=== PATIENT | female | born 1960 | race Caucasian/White ===

== ENCOUNTER → 2017-11-28 06:31 | Outpatient (CLI) | payer BC, SELFPAY ==
--- NOTE | 2017-11-28 14:38 | PFT ---
INTRODUCTION: The patient is a 57-year-old female currently under the care of Dr. Hernandez that presents for pulmonary function testing secondary to a diagnosis of asthma. Respiratory therapy reports good patient effort and reports no other concerns. Bronchodilators were used during testing. INTERPRETATION: Forced expiration spirometry demonstrates the presence of a moderately severe large airways obstructive ventilatory defect. There was a significant response to aerosolized bronchodilators noted in both FEV1 and FVC. Spirograms are of good quality and do not plateau indicating slow emptying of the lungs. The respiratory flow volume loop reveals decreased expiratory flow rates at high lung volumes consistent with small airways obstruction. Body plethysmography was performed and reveals lung volumes to be within normal limits. Diffusing capacity by single breath CO is within normal limits at 75% of predicted. When compared to previous pulmonary function studies dated November 2016 there has been a 12% decrease in the patient's diffusing capacity. IMPRESSION: These pulmonary function studies demonstrate the presence of a partially reversible moderately severe large airways obstructive ventilatory defect.
== END ==
PROVIDERS: Family Provider Family Medicine; PCP Family Medicine; Visit Provider Internal Medicine Critical Care Medicine
DX: J44.9 Chronic obstructive pulmonary disease, unspecified (principal); J45.20 Mild intermittent asthma, uncomplicated
CPT/HCPCS: 94060; 94726; 94729

== ENCOUNTER → 2017-12-04 10:56 | Outpatient (CLI) | payer BC, SELFPAY ==
[2015-08-01 08:54] VITALS: BMI 28.0
[2015-08-01 11:46] VITALS: BP 146/72
--- NOTE | 2017-12-04 11:15 | BRBX_PTH ---
PATIENT: ZUNILDA AJ LOC: [facility] U#:[id number] AGE/SX: 65/F ROOM: RE12/04/[address]: Dr. Silvia Winter MD : 1960 BED: DIS: SPEC #: [id number] RECD: 12/04/17 11:50 STATUS: DENISE REAguilar #: [id number] LALO: 12/04/17 11:[address]: Silvia Winter DEPT: SURGICAL PATHOLOGY RECD BY: Analilia Dueñas ENTERED: 12/04/17 12:50 SP TYPE: BREAST BX OTHR DR: Dr. Cinda Yuen MD Tissues: Right breast, NOS Procedures: Surgery Specimen Level IV HEADER OPERATION: Right breast stereotactic biopsy PRE-OP DIAGNOSIS: Right breast mass at 12 o?clock position TISSUE SUBMITTED: Right breast core tissue ISCHEMIC TIME: 1 minute FIXATION TIME: 8 hours MICROSCOPIC DIAGNOSIS Right breast mass at 12 o?clock, stereotactic needle core biopsy: Fibrocystic change. No evidence of malignancy. AM:liz 12/05/17 MICROSCOPIC DESCRIPTION Slides are reviewed. GROSS DESCRIPTION Received is one container labeled with the patient's name and not further designated. The specimen consists of multiple elongated fragments of campbell-yellow fibroadipose tissue that in aggregate measure 5 x 3 x 0.6 cm. The entire specimen is submitted in four cassettes. / SJ:liz 12/04/16 TC:5 CPT: 97794
--- NOTE | 2017-12-04 13:24 | PCM.OPRPT ---
Report of Operation Date of Procedure: 12/04/17 Pre-Operative Diagnosis: abnormal mammograms Post-Operative Diagnosis: same Surgery/Procedure Performed:: right stereotactic breast biopsy Description of Surgical Findings:: faint nodular lesion seen in right breast mammograms Type of Anesthesia:: Local - 1% xylocaine Specimen's removed: right breast tissue Estimated Blood Loss (mL): < 1 Description of Procedure: After informed consent was given, the patient was brought into the breast biopsy suite and then placed in the prone position on the stereotactic biopsy table. The patients right breast was then placed in the opening at the head of the table. A transportation technician compression mammogram was then obtained in the CC view. The suspicious radiological lesion was then identified. Stereo pictures of the lesion were then taken for XYZ coordinates. The Mammotome biopsy stylus was then positioned where it would be entering into the patients breast. The skin at this site was then cleansed with a surgical skin preparation. The skin and subcutaneous tissues at this site were then infiltrated with 1% xylocaine. A small skin incision was made with an 11 blade scalpel. The biopsy stylus was then positioned into the patients breast at the proper coordinates of depth. Using the Mammotome vacuum-assist device, several core samples of breast tissue were obtained. A hemostatic marker clip was then placed into the biopsy cavity and a transportation technician film revealed that it was properly deployed. The patient was then placed in the supine position and pressure was applied to the breast until no active bleeding was noted. Steristrips were applied to reapproximate the skin. A unilateral mammogram in the CC and MLO view were then taken which revealed that the marker clip was in the same area as the previous suspicious lesion. The patient tolerated the procedure well and was discharged from the breast biopsy suite in good condition. - Complications none noted - Admit VTE Documentation VTE Present on Admission: No - low risk procedure for PE/DVT
--- NOTE | 2017-12-04 14:21 | OP.PCM_ITS ---
Report of Operation Date of Procedure: 12/04/17 Pre-Operative Diagnosis: abnormal mammograms Post-Operative Diagnosis: same Surgery/Procedure Performed:: right stereotactic breast biopsy Description of Surgical Findings:: faint nodular lesion seen in right breast mammograms Type of Anesthesia:: Local - 1% xylocaine Specimen's removed: right breast tissue Estimated Blood Loss (mL): < 1 Description of Procedure: After informed consent was given, the patient was brought into the breast biopsy suite and then placed in the prone position on the stereotactic biopsy table. The patient?s right breast was then placed in the opening at the head of the table. A railroad dining car stewardess compression mammogram was then obtained in the CC view. The suspicious radiological lesion was then identified. Stereo pictures of the lesion were then taken for XYZ coordinates. The Mammotome biopsy stylus was then positioned where it would be entering into the patient?s breast. The skin at this site was then cleansed with a surgical skin preparation. The skin and subcutaneous tissues at this site were then infiltrated with 1% xylocaine. A small skin incision was made with an 11 blade scalpel. The biopsy stylus was then positioned into the patient?s breast at the proper coordinates of depth. Using the Mammotome vacuum-assist device, several core samples of breast tissue were obtained. A hemostatic marker clip was then placed into the biopsy cavity and a railroad dining car stewardess film revealed that it was properly deployed. The patient was then placed in the supine position and pressure was applied to the breast until no active bleeding was noted. Steristrips were applied to reapproximate the skin. A unilateral mammogram in the CC and MLO view were then taken which revealed that the marker clip was in the same area as the previous suspicious lesion. The patient tolerated the procedure well and was discharged from the breast biopsy suite in good condition. - Complications none noted - Admit VTE Documentation VTE Present on Admission: No - low risk procedure for PE/DVT
== END ==
PROVIDERS: Family Provider Family Medicine; PCP Family Medicine; Visit Provider Surgery
DX: R92.8 Other abnormal and inconclusive findings on diagnostic imaging of breast (principal)
CPT/HCPCS: 19081; 88305; J7050; A4648

== ENCOUNTER 2018-02-09 08:23 | Emergency (ER) | payer OTHER, SELFPAY ==
[2018-02-09 08:25] VITALS: BP 155/115; PULSE 85; RESP 17; TEMP 36.4; O2SAT 100; BMI 26.5
--- NOTE | 2018-02-09 08:55 | ED.DCSUM_ITS ---
- ER Visit Summary Date of Service: 02/09/18 Chief Complaint: Laceration History of Present Illness: The patient is a 57 F presenting with laceration to left index finger. Patient states last night she was cutting ray with a new knife and accidentally cut her left index finger. She wrapped it up and did not look at it again until this morning. This morning she had continued bleeding so she went to urgent care. Urgent care sent her to the ED for further evaluation. Last tetanus is unknown. Physical Examination: Vitals are stable. Patient is afebrile. Alert no acute distress. HEENT exam is unremarkable. Lungs are clear and equal bilaterally. Heart is regular rate and rhythm. Extremities left index finger distal skin avulsion with partial nail avulsion. Normal cap refill. Tendon function intact Skin is warm and dry. No focal neurologic deficit. Remainder of exam is unremarkable. Emergency Department Course and Treatment: Patient given tetanus IM. Digital block was performed. Wound was irrigated. Nail was trimmed. Remainder of wound is not amenable to suturing. Surgicel dressing was applied. Advised wound care instructions. Advised to follow-up with primary care physician. Advised return to ED for worsening complaints. Disposition: Discharge home Impression: Left index finger distal skin avulsion This note was generated with [employer] dictation software. It may contain incorrect words, spelling, and punctuation that were not noted in review of the chart prior to signing ED Disposition - Plan for ED Patient: Chief Complaint: Laceration Referrals: Cinda Yuen MD [Primary Care Provider] -
--- NOTE | 2018-02-09 10:03 | ED.DEP ---
ED Disposition - Plan for ED Patient: Chief Complaint: Laceration Instructions: ED Avulsion Nail Partial Referrals: Cinda Yuen MD [Primary Care Provider] -
[2018-02-09] MEDS: Diphth,Pertuss(Acell),Tet Vac 0.5 ML Vial IM (10:31)
[2018-02-09 10:32] VITALS: RESP 16
== END 2018-02-09 10:35 | disposition home or self-care (01) ==
PROVIDERS: Emergency Provider Emergency Medicine; Family Provider Family Medicine; PCP Family Medicine
DX: S61.301A Unspecified open wound of left index finger with damage to nail, initial encounter (principal); W26.0XXA Contact with knife, initial encounter; Y93.9 Activity, unspecified; Y92.9 Unspecified place or not applicable; Y99.9 Unspecified external cause status; Z23 Encounter for immunization; Z72.0 Tobacco use; Z79.899 Other long term (current) drug therapy
CPT/HCPCS: 90471; 90715; 99283

== ENCOUNTER → 2018-08-12 08:12 | Outpatient (CLI) | payer OTHER, SELFPAY ==
[2018-08-12 10:53] LABS: T4 Total, Thyroxin 13.8 ug/dL (4.8-13.9); Thyroid Stim Hormone (TSH) 0.29 uIU/mL (0.358-3.74)
== END ==
PROVIDERS: Family Provider Family Medicine; PCP Family Medicine; Visit Provider Family Medicine
DX: E03.9 Hypothyroidism, unspecified (principal)
CPT/HCPCS: 36415; 84436; 84443

== ENCOUNTER → 2018-11-24 06:40 | Outpatient (CLI) | payer OTHER, SELFPAY ==
[2018-06-09 06:39] VITALS: BMI 26.5
--- NOTE | 2018-11-24 14:04 | PFT ---
INTRODUCTION: The patient is a 58-year-old female that presents for pulmonary function studies secondary to a diagnosis of COPD. Respiratory therapy reports good patient effort. Bronchodilators were used during testing. INTERPRETATION: Forced expiration spirometry demonstrates the presence of a moderately severe large airways obstructive ventilatory defect. There was a significant response to aerosolized bronchodilators noted. Spirograms are of good quality and do not plateau indicating slow emptying of the lungs. Body plethysmography was performed and revealed an elevated RV to 131% of predicted, indicative of underlying air trapping. Diffusing capacity by single breath CO is within normal limits at 89% of predicted. IMPRESSION: These pulmonary function studies demonstrate the presence of a partially reversible moderately severe large airways obstructive ventilatory defect with associated air trapping.
== END ==
PROVIDERS: Family Provider Family Medicine; PCP Family Medicine; Referring Provider Internal Medicine Critical Care Medicine; Visit Provider Internal Medicine Critical Care Medicine
DX: J44.9 Chronic obstructive pulmonary disease, unspecified (principal); J45.20 Mild intermittent asthma, uncomplicated
CPT/HCPCS: 94060; 94726; 94729

== ENCOUNTER → 2019-01-22 10:41 | Outpatient (CLI) | payer OTHER, SELFPAY ==
--- NOTE | 2019-01-22 | BRBX_PTH ---
PATIENT: ZUNILDA AJ LOC: [facility] U#:[id number] AGE/SX: 65/F ROOM: RE01/22/[address]: Dr. Silvia Winter MD : 1960 BED: DIS: SPEC #: [id number] RECD: 01/22/19 14:26 STATUS: DENISE RE #: [id number] LALO: 01/22/19 00:[address]: Silvia Winter DEPT: SURGICAL PATHOLOGY RECD BY: Anderson Moya ENTERED: 01/22/19 14:26 SP TYPE: BREAST BX OTHR DR: Dr. Cinda Yuen MD Tissues: Right breast, NOS Procedures: Surgery Specimen Level IV HEADER OPERATION: Right stereotactic breast biopsy PRE-OP DIAGNOSIS: Right breast 12 o'clock middle depth density TISSUE SUBMITTED: Right breast core tissue ISCHEMIC TIME: 1 minute FIXATION TIME: 56 hours MICROSCOPIC DIAGNOSIS Right breast, 12 o'clock, middle depth density, stereotactic core biopsy: Fragments of benign breast tissue with focal dense fibrosis, chronic inflammation and old hemorrhage, consistent with previous biopsy related changes. Negative for atypia or malignancy. NICK:liz 01/25/19 COMMENT Please make reference to previous specimen ([id number]) right breast mass at 12 o'clock, stereotactic needle core biopsy with diagnosis of fibrocystic change. MICROSCOPIC DESCRIPTION Slides are reviewed. GROSS DESCRIPTION Received is one container labeled with the patient's name and not further designated. The specimen consists of multiple elongated fragments of campbell-yellow fibroadipose tissue that in aggregate measure 2.5 x 2 x 0.2 cm. The entire specimen is submitted in one cassette. / NICK:liz 01/22/19 TC:5 CPT: 72719
--- NOTE | 2019-01-25 08:52 | PCM.OPRPT ---
Report of Operation Date of Procedure: 01/22/19 Pre-Operative Diagnosis: abnormal right breast mammograms Post-Operative Diagnosis: same Surgery/Procedure Performed:: right stereotactic breast biopsy Description of Surgical Findings:: probable scar tissue at previous biopsy site, previous biopsy clip removed with specimen Type of Anesthesia:: Local - 1% xylocaine Specimen's removed: right breast tissue Estimated Blood Loss (mL): minimal Fluids Replaced: none Description of Procedure: After informed consent was given, the patient was brought into the breast biopsy suite. Appropriate time out protocol was followed. She was then placed in the prone position on the stereotactic biopsy table. The patient?s right breast was then placed at the opening at the head of the table. A sourcing assistant compression mammogram was then obtained in the CC view. The suspicious radiological lesion was then identified. Stereo pictures of the lesion were then taken for XYZ coordinates. The Mammotome biopsy stylus was then positioned where it would be entering into the patient?s breast. The skin at this site was then cleansed with a surgical skin preparation. The skin and subcutaneous tissues at this site were then infiltrated with 1% xylocaine. A small skin incision was made with an 11 blade scalpel. The biopsy stylus was then positioned into the patient?s breast at the proper coordinates of depth. Using the Mammotome vacuum-assist device, several core samples of breast tissue were obtained. A hemostatic marker clip was then placed into the biopsy cavity. A sourcing assistant film revealed that it was properly deployed and that the previous marker clip was no longer present. The patient was then placed in the supine position and pressure was applied to the breast until no active bleeding was noted. Steristrips were applied to reapproximate the skin. A unilateral mammogram in the CC and MLO view were then taken which revealed that the marker clip was in the same area as the previous suspicious lesion. The patient tolerated the procedure well and was discharged from the breast biopsy suite in good condition. - Complications none noted
--- NOTE | 2019-01-25 08:56 | OP.PCM_ITS ---
Report of Operation Date of Procedure: 01/22/19 Pre-Operative Diagnosis: abnormal right breast mammograms Post-Operative Diagnosis: same Surgery/Procedure Performed:: right stereotactic breast biopsy Description of Surgical Findings:: probable scar tissue at previous biopsy site, previous biopsy clip removed with specimen Type of Anesthesia:: Local - 1% xylocaine Specimen's removed: right breast tissue Estimated Blood Loss (mL): minimal Fluids Replaced: none Description of Procedure: After informed consent was given, the patient was brought into the breast biopsy suite. Appropriate time out protocol was followed. She was then placed in the prone position on the stereotactic biopsy table. The patient?s right breast was then placed at the opening at the head of the table. A heater planer operator compression mammogram was then obtained in the CC view. The suspicious radiological lesion was then identified. Stereo pictures of the lesion were then taken for XYZ coordinates. The Mammotome biopsy stylus was then positioned where it would be entering into the patient?s breast. The skin at this site was then cleansed with a surgical skin preparation. The skin and subcutaneous tissues at this site were then infiltrated with 1% xylocaine. A small skin incision was made with an 11 blade scalpel. The biopsy stylus was then positioned into the patient?s breast at the proper coordinates of depth. Using the Mammotome vacuum-assist device, several core samples of breast tissue were obtained. A hemostatic marker clip was then placed into the biopsy cavity. A heater planer operator film revealed that it was properly deployed and that the previous marker clip was no longer present. The patient was then placed in the supine position and pressure was applied to the breast until no active bleeding was noted. Steristrips were applied to reapproximate the skin. A unilateral mammogram in the CC and MLO view were then taken which revealed that the marker clip was in the same area as the previous suspicious lesion. The patient tolerated the procedure well and was discharged from the breast biopsy suite in good condition. - Complications none noted
== END ==
PROVIDERS: Family Provider Family Medicine; PCP Family Medicine; Referring Provider Surgery; Visit Provider Surgery
DX: R92.8 Other abnormal and inconclusive findings on diagnostic imaging of breast (principal); N60.31 Fibrosclerosis of right breast; E03.9 Hypothyroidism, unspecified; M16.10 Unilateral primary osteoarthritis, unspecified hip; F17.200 Nicotine dependence, unspecified, uncomplicated; Z79.899 Other long term (current) drug therapy; Z85.828 Personal history of other malignant neoplasm of skin
CPT/HCPCS: 19081; 88305; J7050

== ENCOUNTER → 2019-03-12 07:55 | Outpatient (CLI) | payer OTHER, SELFPAY ==
--- NOTE | 2019-03-12 07:59 | US_ITS ---
STUDY: ABDOMINAL ULTRASOUND - RIGHT UPPER QUADRANT REASON FOR VISIT: Female, 58 years old. Right upper quadrant pain TECHNIQUE: Ultrasound evaluation of the right upper quadrant was performed with real-time and static mejia-scale imaging. TECHNICAL QUALITY: Adequate. COMPARISON: None. FINDINGS: Liver: The liver measures 16 cm. There is increased echogenicity of the liver. The bile ducts are within normal limits. There is hepatic color flow. The direction of portal flow is hepatopetal. There is no demonstrated mass lesion. Gallbladder: Partially distended gallbladder. The gallbladder wall measures 2.0 mm. There is a negative sonographic Brown's sign. There is no pericholecystic fluid. There are no gallstones. Common Bile Duct (C.B.D.): The common bile duct measures 2.2 mm. Pancreas: There is normal echogenicity of the visualized pancreas. There is no demonstrated pancreatic mass or cyst. Right Kidney: Normal size of the right kidney. The right kidney measures 10.9 x 5.2 x 4.0 cm. Normal renal cortex. The right cortex measures 1.2 cm. There is no demonstrated renal mass or cyst. There is no right hydronephrosis. US/Abdomen Limited IMPRESSION: 1. No gallstones or sonographic evidence of cholecystitis/biliary obstruction. 2. Increased echo pattern of the liver is nonspecific most commonly associated with hepatic steatosis. Electronically Signed: Joseph Regan MD at 14:10 EDT , Service support ,
== END ==
PROVIDERS: Family Provider Family Medicine; PCP Family Medicine; Referring Provider Family Medicine; Visit Provider Family Medicine
DX: R10.9 Unspecified abdominal pain (principal)
CPT/HCPCS: 76705

== ENCOUNTER → 2019-04-21 10:08 | Outpatient (CLI) | payer OTHER, SELFPAY ==
[2018-12-08 06:25] VITALS: BMI 26.2
[2019-04-21 12:29] LABS: Hematocrit 44.1 % (37-47); Hemoglobin 14.9 g/dl (12.0-15.0); Mean Corp Hgb Conc 33.8 g/gl (32-36); Mean Corpuscular Hgb 30.5 pg (27.0-32.0); Mean Corpuscular Volume 90.4 fL (81-99); Mean Platelet Vol. 10.6 fl (6.2-12.0); Platelet Count 170 K/mm3 (150-450); RBC Distribution Width CV 12.6 % (11.6-14.6); RBC Distribution Width SD 41.2 fl (35.1-43.9); Red Blood Count 4.88 M/mm3 (4.2-5.4)
[2019-04-21 12:36] LABS: Scan Indicated on CBC? Y/N NO
[2019-04-21 13:18] LABS: AST(SGOT) 21 U/L (15-37); Alanine Aminotransfer ALT/SGPT 32 U/L (13-56); Albumin, Serum 4.1 g/dL (3.2-5.0); Alkaline Phosphatase 94 U/L (45-117); Bilirubin, Direct 0.13 mg/dL (0.00-0.30); CRP 3.67 mg/L (0.0-3.0); Globulin 3.5 g/dL (2.2-4.2); Protein, Total 7.6 g/dL (6.4-8.2)
== END ==
PROVIDERS: Family Provider Family Medicine; PCP Family Medicine; Referring Provider Internal Medicine Gastroenterology; Visit Provider Internal Medicine Gastroenterology
DX: R10.9 Unspecified abdominal pain (principal)
CPT/HCPCS: 36415; 80076; 85027; 86140

== ENCOUNTER → 2019-05-06 07:35 | Outpatient (CLI) | payer OTHER, SELFPAY ==
--- NOTE | 2019-05-06 07:37 | US_ITS ---
STUDY: ULTRASOUND OF THE FEMALE PELVIS - COMPLETE REASON FOR EXAM: Female, 59 years old. Right lower quadrant pain. LMP: Unknown. TECHNIQUE: Transabdominal and Transvaginal. TECHNICAL QUALITY: Adequate. COMPARISON: None. FINDINGS: The uterus is anteverted and is in a midline position. The uterus measures 4.4 x 3.1 x 1.7 cm. Normal uterine cervix. The endometrium measures 1 mm in thickness, and is hyperechoic. There is no demonstrated endometrial mass. There is no demonstrated myometrial mass. There is echogenic focus of the posterior uterus with possible small calcification. I.U.D. - The patient does not have an I.U.D. The right ovary is visualized. The right ovary measures 1.4 x 0.7 x 0.7 cm. There is no right ovarian cyst or ovarian mass. There is no visualized right adnexal mass or complex lesion. There is normal arterial and normal venous vascularity. The left ovary is visualized. The left ovary measures 1.3 x 1.2 x 0.8 cm. There is no left ovarian cyst or ovarian mass. There is no visualized left adnexal mass or complex lesion. There is normal arterial and normal venous vascularity. There is no fluid in the cul-de-sac. The pre void volume of the bladder was 328 ml. US/Pelvic (Non ) IMPRESSION: No dominant mass or cyst. Small calcification of the posterior uterus. Electronically Signed: Benito Oliva MD at 17:00 EDT , Service support ,
--- NOTE | 2019-05-06 08:11 | US_ITS ---
STUDY: ULTRASOUND OF THE FEMALE PELVIS - COMPLETE REASON FOR EXAM: Female, 59 years old. Right lower quadrant pain. LMP: Unknown. TECHNIQUE: Transabdominal and Transvaginal. TECHNICAL QUALITY: Adequate. COMPARISON: None. FINDINGS: The uterus is anteverted and is in a midline position. The uterus measures 4.4 x 3.1 x 1.7 cm. Normal uterine cervix. The endometrium measures 1 mm in thickness, and is hyperechoic. There is no demonstrated endometrial mass. There is no demonstrated myometrial mass. There is echogenic focus of the posterior uterus with possible small calcification. I.U.D. - The patient does not have an I.U.D. The right ovary is visualized. The right ovary measures 1.4 x 0.7 x 0.7 cm. There is no right ovarian cyst or ovarian mass. There is no visualized right adnexal mass or complex lesion. There is normal arterial and normal venous vascularity. The left ovary is visualized. The left ovary measures 1.3 x 1.2 x 0.8 cm. There is no left ovarian cyst or ovarian mass. There is no visualized left adnexal mass or complex lesion. There is normal arterial and normal venous vascularity. There is no fluid in the cul-de-sac. The pre void volume of the bladder was 328 ml. US/Transvaginal Non- IMPRESSION: No dominant mass or cyst. Small calcification of the posterior uterus. Electronically Signed: Benito Oliva MD at 17:00 EDT , Service support ,
== END ==
PROVIDERS: Family Provider Family Medicine; PCP Family Medicine; Referring Provider Internal Medicine Gastroenterology; Visit Provider Internal Medicine Gastroenterology
DX: R10.31 Right lower quadrant pain (principal)
CPT/HCPCS: 76830; 76856; 93976

== ENCOUNTER → 2019-12-16 07:27 | Outpatient (CLI) | payer OTHER, SELFPAY ==
[2019-06-22 07:09] VITALS: BMI 26.2
[2019-12-16 10:23] LABS: Anion Gap 5 (5-15); BUN 16 mg/dL (7-18); BUN/Creat Ratio 18.4 RATIO (10-20); Calcium,Total 9.5 mg/dL (8.5-10.1); Chloride 109 mmol/L (98-107); Cholesterol 192 mg/dL (200); Creatinine, Serum 0.87 mg/dL (0.55-1.02); EST Glomerular Filtration Rate 71 mL/min (>60); Est Glom Filt Rate - Afr Amer 85 mL/min (>60); Glucose 83 mg/dL (74-106); High Density Lipoprotein 60 mg/dL; Potassium 4.4 mmol/L (3.5-5.1); Sodium Level 142 mmol/L (136-145); T4 Total, Thyroxin 15.2 ug/dL (4.8-13.9); Thyroid Stim Hormone (TSH) 1.15 uIU/mL (0.358-3.74); Triglycerides 53 mg/dL; Very Low Density Lipoprotein 11 mg/dL (5-40)
== END ==
PROVIDERS: PCP Family Medicine; Referring Provider Family Medicine; Visit Provider Family Medicine
DX: Z00.00 Encounter for general adult medical examination without abnormal findings (principal); E03.9 Hypothyroidism, unspecified
CPT/HCPCS: 36415; 80048; 80061; 84436; 84443

== ENCOUNTER → 2020-06-12 07:18 | Outpatient (CLI) | payer OTHER, SELFPAY ==
[2019-06-22 07:09] VITALS: BMI 26.2
--- NOTE | 2020-06-12 15:04 | PFTCOMP ---
COMPLETE PULMONARY FUNCTION TEST INTERPRETATION Brief HPI: Patient is a 60 year old female, currently under the care of myself, who presents to [facility] for complete pulmonary function tests secondary to diagnosis of COPD. Respiratory therapist reports good effort and reproducible results. Interpretation: Forced expiration spirometry shows a mild large airways obstructive ventilatory defect with an FEV1 of 72% predicted. There is a significant bronchodilator response in FVC and FEV1 by strict ATS criteria. Spirograms are of good quality and plateau slowly, indicating slowly emptying areas of the lungs. The respiratory flow volume loop shows decreased expiratory flow rates at all lung volumes consistent with airway obstruction. Lung volumes by body plethysmography show a normal total lung capacity at 4.82 L, 105% predicted. FRC and RV are elevated out of proportion. Lung volume measurements are consistent with air-trapping. Diffusion capacity by carbon monoxide is normal at 90% predicted. The airway resistance is elevated. Compared to previous pulmonary function tests from 11/24/2018, there has been no significant change when evaluated by postbronchodilator values. Impression: Partially reversible mild large airways obstructive ventilatory defect resulting in air trapping. There is been relative stability over the last year in post bronchodilator values. 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
== END ==
PROVIDERS: PCP Family Medicine; Referring Provider Internal Medicine Critical Care Medicine; Visit Provider Internal Medicine Critical Care Medicine
DX: J44.9 Chronic obstructive pulmonary disease, unspecified (principal); J45.20 Mild intermittent asthma, uncomplicated
CPT/HCPCS: 94060; 94726; 94729

== ENCOUNTER → 2020-11-16 06:58 | Outpatient (CLI) | payer OTHER, SELFPAY ==
[2020-06-20 05:32] VITALS: BMI 25.9
--- NOTE | 2020-11-16 13:35 | PFTCOMP ---
COMPLETE PULMONARY FUNCTION TEST INTERPRETATION Brief HPI: Patient is a 60 year old female, currently under the care of myself, who presents to [facility] for complete pulmonary function tests secondary to diagnosis of COPD. Respiratory therapist reports good effort and reproducible results. Interpretation: Forced expiration spirometry shows a mild large airways obstructive ventilatory defect with an FEV1 of 77% predicted. There is a significant bronchodilator response in FVC and FEV1 by strict ATS criteria. Spirograms are of good quality and plateau slowly, indicating slowly emptying areas of the lungs. The respiratory flow volume loop shows decreased expiratory flow rates at all lung volumes consistent with airway obstruction. Lung volumes by body plethysmography show a normal total lung capacity at 4.84 L, 108% predicted. All other lung volumes are within normal limits. Diffusion capacity by carbon monoxide is normal at 103% predicted. The airway resistance is slightly elevated. Compared to previous pulmonary function tests from 06/12/2020, there is been a significant improvement in FVC, FEV1 and DLCO by 21%, 33% and 16% respectively. Impression: Partially reversible mild obstructive ventilatory defect with preserved diffusion capacity in a pattern consistent with COPD/asthma overlap syndrome, but significant improvement compared to May 2020
== END ==
PROVIDERS: PCP Family Medicine; Referring Provider Internal Medicine Critical Care Medicine; Visit Provider Internal Medicine Critical Care Medicine
DX: J44.9 Chronic obstructive pulmonary disease, unspecified (principal)
CPT/HCPCS: 94060; 94726; 94729

== ENCOUNTER → 2021-01-03 09:51 | Outpatient (CLI) | payer OTHER, SELFPAY ==
[2020-11-23 06:38] VITALS: BMI 26.2
[2021-01-03 12:53] LABS: T4 Total, Thyroxin 15.7 ug/dL (4.8-13.9); Thyroid Stim Hormone (TSH) 0.45 uIU/mL (0.358-3.74)
== END ==
PROVIDERS: PCP Family Medicine; Referring Provider Family Medicine; Visit Provider Family Medicine
DX: E03.9 Hypothyroidism, unspecified (principal)
CPT/HCPCS: 36415; 84436; 84443

== ENCOUNTER → 2021-05-10 07:54 | Outpatient (CLI) | payer OTHER, SELFPAY ==
[2021-05-08 06:44] VITALS: BMI 26.2
== END ==
PROVIDERS: PCP Family Medicine; Referring Provider Family Medicine; Visit Provider Family Medicine
DX: Z01.83 Encounter for blood typing (principal)
CPT/HCPCS: 36415; 86900; 86901

== ENCOUNTER 2021-07-25 06:22 | Day surgery (SDC) | payer OTHER, SELFPAY ==
[2021-07-25 06:42] VITALS: BP 132/79; PULSE 94; RESP 16; TEMP 36.6; O2SAT 97; BMI 25.9
[2021-07-25] MEDS: Lactated Ringers 1,000 ML 100 ML IV (06:49)
--- NOTE | 2021-07-25 07:30 | EGD_PTH ---
PATIENT: ZUNILDA AJ LOC: EN U#:[id number] AGE/SX: 61/F ROOM: RE07/25/[address]: Dr. Giorgi Bauer DO : 1960 BED: DIS: 07/25/2021 SPEC #: [id number] RECD: 07/25/21 09:40 STATUS: DENISE REAguilar #: [id number] LALO: 07/25/21 07:[address]: Giorgi Bauer DEPT: SURGICAL PATHOLOGY RECD BY: Analilia Dueñas ENTERED: 07/25/21 12:16 SP TYPE: EGD BIOPSY [facility] DR: Dr. Cinda Yuen MD Tissues: A - Gastric mucous membrane B - Esophagus, NOS Procedures: Special Stain Group II Surgery Specimen Level IV Alcian Blue/PAS (control) HEADER OPERATION: EGD ([facility] [place]) with dilation PRE-OP DIAGNOSIS: Esophageal dysphagia TISSUE SUBMITTED: A ? Biopsy of gastric body for H. pylori and path, B ? Biopsy of distal esophagus MICROSCOPIC DIAGNOSIS A. Gastric body, biopsy: Chronic active gastritis. Focal intestinal metaplasia. No evidence of dysplasia. See comment. B. Distal esophagus, biopsy: Gastroesophageal junctional mucosa with mild chronic inflammation. No evidence of goblet cell metaplasia. Focal changes of reflux. See comment. AM:liz 07/26/2021 COMMENT A. The results of immunohistochemistry for Helicobacter pylori will be reported separately ([id number]). Immunohistochemistry ([id number]) supports the above diagnosis. Alcian blue/PAS stain with matched control supports the above diagnosis. B. Alcian blue/PAS stain with matched control supports the above diagnosis. MICROSCOPIC DESCRIPTION Slides are reviewed. GROSS DESCRIPTION A - Received in fixative is one container labeled with the patient's name and designated gastric body biopsy. The specimen consists of multiple irregular fragments of light campbell soft tissue that in aggregate measure 0.8 x 0.5 x 0.1 cm. The specimen is totally submitted in one cassette. B - Received in fixative is one container labeled with the patient's name and designated distal esophagus biopsy. The specimen consists of two irregular fragments of light campbell soft tissue that in aggregate measure 0.7 x 0.5 x 0.1 cm. The specimen is totally submitted in one cassette. / AM:liz 07/25/21 TC:3 CPT: 98206 x2, 78000 x2
--- NOTE | 2021-07-25 07:30 | IMM_PTH ---
PATIENT: ZUNILDA AJ LOC: EN U#:[id number] AGE/SX: 61/F ROOM: RE07/25/[address]: Dr. Giorgi Bauer DO : 1960 BED: DIS: 07/25/2021 SPEC #: [id number] RECD: 07/25/21 12:17 STATUS: DENISE REQ #: [id number] LALO: 07/25/21 07:[address]: Giorgi Bauer DEPT: IMMUNOHISTOCHEMISTRY RECD BY: Marielena Castillo ENTERED: 07/25/21 12:17 SP TYPE: IMMUNO OTHR DR: Dr. Cinda Yuen MD Tissues: A - Stomach, NOS Procedures: H Pylori (initial) KI-67 (add) P53 (add) PHYSICIAN & INSTITUTION [place] [id number] SPECIMEN INFORMATION: Tissue Source: A ? Gastric body biopsy Clinical Info: Esophageal dysphagia Specimen Number: [id number] CPT code: 16511, 04404 x2 METHODOLOGY: Deparaffinized sections of prefer/formalin-fixed tissue or PAP/DQ stained slides are incubated with monoclonal/polyclonal antibodies/oligonucleotide probes. Localization is made via biotin free immunoperoxidase method. Appropriate controls are performed and reacted as expected. Results on target cell population are indicated in the following table: RESULTS: ANTIBODY / CLONE RESULT Block A H Pylori (polyclonal) negative P53 (DO-7) negative Ki-67 (30-9) negative These tests were developed and their performance characteristics determined by [facility]. They may not have been cleared or approved by the U.S. Food and Drug Administration. The FDA has determined that such clearance or approval is not necessary. The above immunohistochemical/dualISH markers are ordered and reviewed by the pathologist. INTERPRETATION: A. Gastric body, biopsy: Negative for Helicobacter pylori organisms. Intestinal metaplasia. No evidence of dysplasia. AM:liz 07/27/2021
--- NOTE | 2021-07-25 07:35 | HP.PCM_ITS ---
History and Physical Date of Admission: 07/25/21 Intake Visit Reasons: THROAT ISSUE Chief Complaint: Dysphagia Is patient in pain?: Yes (L Fourth finger - unknown cause) Pain scale (1-10): 3 Allergies Sulfa (Sulfonamide Antibiotics) Adverse Reaction (Verified 07/17/21 07:28) Rash Medications levothyroxine 100 mcg tablet 100 mcg PO DAILY tab 12/08/18 [History Confirmed 07/17/21] beclomethasone dipropionate 80 mcg/actuation HFA breath activated aerosol 2 inh INHALATION Q12H #10.6 g 06/20/20 [Rx Confirmed 07/17/21] albuterol sulfate 90 mcg/actuation aerosol inhaler 2 puff INHALATION PRN #18 g 11/23/20 [Rx Confirmed 07/17/21] latanoprost 0.005 % eye drops 1 drp OPHTHALMIC (EYE) DAILY 07/17/21 [History Confirmed 07/17/21] sour henry extract 1,000 mg capsule mg PO 07/17/21 [History Confirmed 07/17/21] Patient : No Nurse's Note: [facility] Medical History (Updated 07/17/21 @ 08:[address] Rand Friend, DO) Abnormal PFT Esophageal dysphagia Skin cancer Stage 1 mild COPD by GOLD classification Thyroid disease Tobacco abuse Surgical History History of back surgery History of cataract surgery History of knee surgery Hx of LASIK stereotactic BX Family History Brother Thyroid disorder Brothers 1, 2, and 3 Brother Guillain Paul? syndrome Brother 3 Mother Lupus Father Myocardial infarction Social History Smoking Status: Current every day smoker tobacco type: cigars per week: 2 Tobacco: How many years used: 11 second hand exposure: Yes alcohol intake: current alcohol intake frequency: a few times a week Alcohol type: hard liquor substance use type: does not use caffeine: Yes what type of physical activity do you participate in: walking and running frequency: daily HPI HPI Chief Complaint: Dysphagia Details: ZUNILDA AJ, is a 61 F who presents to the office today for the ration of esophageal dysphagia. This begun approximately 18 months ago with a globus sensation that progressed to inability to swallow liquids and solids on occasion. She saw her ear nose and throat doctor after having extensive treatment for postnasal drip as a cause of esophageal dysphagia. After that was not successful she underwent a scope that looked at the back of the throat and no abnormality was seen. She went on a restriction diet of alcohol and caffeine along with taking a proton pump inhibitor. She still had the symptoms of esophageal dysphagia. She comes in now very frustrated regarding the inability to swallow. She has been eliminating acidic foods, all caffeine and almost all alcohol. She suffers from Graves' disease. She says a good thing about stopping caffeine has been the pressures in her eyes have gone down as per her transfusion nurse. She is a chronic smoker and has a history of COPD. She does not cough a lot. But she does produce a lot of mucus. Her mother suffers from scleroderma and she has multiple family members with lupus and rheumatoid arthritis. Recently over the last several months she has been getting really bad discoloration of her fingers and toes in response to temperature changes. She denies any weakness or fatigue. She denies any chest pain or shortness of breath at rest. She does have a history of easy bruising. She denies any history of spontaneous abortions or any blood clotting disorders. All other 16 review of systems are negative except those pertinent positive mentioned HPI. ROS Const Constitutional: No anorexia, fatigue, fever(s), weight change or sleep problems Eyes Eyes: No change in vision ENT ENT: Positive for nasal congestion and difficulty swallowing; No abnormal hearing, tongue swelling or throat swelling Resp Respiratory: Positive for cough (Chronic) Cardio Cardiology: No chest pain at rest, chest pain with exertion, shortness of breath or dyspnea on exertion Gastro GI: Positive for difficulty swallowing Genitourinary-Female: No difficulty urinating or burning urination Musc Musculoskeletal: Positive for joint pain, joint swelling and stiffness Skin Skin: No hair loss in leg, yellowing of the eye, itchy eyes, rash, skin ulcer or skin swelling Neuro Neurology: No abnormal hearing, abnormal movements, confusion, unsteady gait/balance or memory loss Psych Psychiatric: No anxiety, No confusion and No memory loss Endo Endocrine: No fatigue or weight change Aller/Imm Allergy/Immunologic: No itchy eyes, throat swelling or tongue swelling Bull/Lymp Hematologic/Lymphatic: No easy bleeding, easy bruising or enlarged lymph nodes Exam Const General: cooperative and comfortable Nutritional Appearance: average body habitus and well nourished HENSD Head: normal to inspection Ears: hearing grossly normal bilaterally Nose: external nose normal Face and sinus: normal facial exam Mouth: oral mucosae normal Throat: posterior oropharynx normal Eyes General: appearance normal, both eyes and all related structures Neck Neck: normal visual inspection Chest Chest palpation & inspection: normal inspection of the chest and normal palpation of entire chest wall Resp Effort & Inspection: normal respiratory effort Auscultation: Bilateral: Clear to Auscultation Cardio Palpation: normal PMI Rate: regular rate Rhythm: regular rhythm GI Inspection: normal to inspection Auscultation: normal bowel sounds Percussion: normal to percussion Palpation: no hepatosplenomegaly Skin General: no rashes or lesions noted Neuro General: patient alert Extrem General: normal to inspection Psych Affect: normal affect Quality Reporting Tobacco Screening ([facility] 138) Smoking Status: Current every day smoker Assessment and Plan Assessment and Plan (1) Esophageal dysphagia: Status: Acute Plan - Dr. Rand Friend, DO: The differential diagnosis for esophageal dysphagia would be cricopharyngeal achalasia, crest syndrome, Sjogren's syndrome, laryngeal spasm. She will undergo upper endoscopy with possible empiric dilation and biopsies. She will also need biochemical testing with ESR, CRP, SANDEEP, ANCA, anti-CCP, anticentromere antibody, antidouble-stranded DNA, antihistone antibody, anti-Young antibody, LDH, CPK. She will also need to undergo esophageal manometry. Further recommendations to follow. Thank you very much for allowing me to part icipate in the care of this patient. This is an updated H&P from when the patient was seen in the office. Nothing has change since she was seen in office.
[2021-07-25 08:05] VITALS: BP 104/60; BP 132/79; PULSE 80; RESP 16; TEMP 36.4; O2SAT 99
--- NOTE | 2021-07-25 08:06 | OP.EGD_ITS ---
Patient Name: Yessi Smith Procedure Date: 07/25/2021 7:36 AM Date of : 1960 Age: 61 Procedure: Upper GI endoscopy Indications: Dysphagia Providers: Giorgi Bauer DO Medicines: Monitored Anesthesia Care Patient Profile: This is a 61 year old female. Refer to note in patient chart for documentation of history and physical. Patient has symptoms of chronic dysphagia and dysphagia with both liquids and solids. Complications: No immediate complications. Procedure: Pre-Anesthesia Assessment: - Prior to the procedure, a History and Physical was performed, and patient medications and allergies were reviewed. The patient is competent. The risks and benefits of the procedure and the sedation options and risks were discussed with the patient. All questions were answered and informed consent was obtained. Patient identification and proposed procedure were verified by the physician in the pre-procedure area. Mental Status Examination: alert and oriented. Airway Examination: normal oropharyngeal airway and neck mobility. Respiratory Examination: clear to auscultation. CV Examination: normal. Prophylactic Antibiotics: The patient does not require prophylactic antibiotics. Prior Anticoagulants: The patient has taken no previous anticoagulant or antiplatelet agents. ASA Grade Assessment: II - A patient with mild systemic disease. After reviewing the risks and benefits, the patient was deemed in satisfactory condition to undergo the procedure. The anesthesia plan was to use moderate sedation / analgesia (conscious sedation). Immediately prior to administration of medications, the patient was re-assessed for adequacy to receive sedatives. The heart rate, respiratory rate, oxygen saturations, blood pressure, adequacy of pulmonary ventilation, and response to care were monitored throughout the procedure. The physical status of the patient was re-assessed after the procedure. After obtaining informed consent, the endoscope was passed under direct vision. Throughout the procedure, the patient's blood pressure, pulse, and oxygen saturations were monitored continuously. The Endoscope was introduced through the mouth, and advanced to the second part of duodenum. The upper GI endoscopy was accomplished without difficulty. The patient tolerated the procedure well. Moderate Sedation: Moderate (conscious) sedation was personally administered by an anesthesia professional. The following parameters were monitored: oxygen saturation, heart rate, blood pressure, and response to care. Scope In: 7:44:05 AM Scope Out: 7:58:54 AM Total Procedure Duration Time 0 hours 14 minutes 49 seconds Findings: One benign-appearing, intrinsic stenosis was found. This stenosis was moderately severe and. The stenosis was traversed. A guidewire was placed and the scope was withdrawn. Dilation was performed with a Savary dilator with no resistance at 54 Fr. The lesion was not amenable to dilation, and this was not attempted. Diffuse moderate inflammation characterized by congestion (edema), erythema and friability was found in the entire examined stomach. Biopsies were taken with a cold forceps for histology. Verification of patient identification for the specimen was done. Estimated blood loss was minimal. LA Grade A (one or more mucosal breaks less than 5 mm, not extending between tops of 2 mucosal folds) esophagitis with no bleeding was found. Biopsies were taken with a cold forceps for histology. Verification of patient identification for the specimen was done. Estimated blood loss was minimal. The second portion of the duodenum was normal. \ Impression: - Benign-appearing esophageal stenosis. Dilated. Lesion not amenable to dilation, and not attempted. - Gastritis. Biopsied. - LA Grade A reflux esophagitis. Biopsied. - Normal second portion of the duodenum. Biopsied. - Benign-appearing esophageal stenosis. Dilated. - LA Grade A reflux esophagitis. Biopsied. - Gastric mucosal atrophy. - Chronic gastritis. Biopsied. - Normal second portion of the duodenum. Recommendation: - Await pathology results. - Repeat upper endoscopy in 1 year for surveillance based on pathology results. - Return to GI clinic in 2 weeks. - Continue present medications. Procedure Code(s): --- Professional --- 90557, Esophagogastroduodenoscopy, flexible, transoral; with insertion of guide wire followed by passage of dilator(s) through esophagus over guide wire CPT copyright 2017 [employer]. All rights reserved. The codes documented in this report are preliminary and upon remote coders review may be revised to meet current compliance requirements. Giorgi Bauer DO 07/25/2021 8:06:34 AM This report has been signed electronically. Number of Addenda: 1 Note Initiated On: 07/25/2021 7:36 AM Addendum Number: 1 Addendum Date: 06/27/2022 4:10:03 PM MAC was used instead of moderate sedation for this patient. Giorgi Bauer DO 06/27/2022 4:10:09 PM This report has been signed electronically.
--- NOTE | 2021-07-25 08:07 | OP.CCLET_ITS ---
06/27/2022 Cinda Yuen [address] [place] [address] Re : Upper GI endoscopy procedure for Yessi Smith Dear Dr. Yuen This procedure was performed on Sunday, July 25, 2021. My impressions and recommendations are as follows: Impressions : - Benign-appearing esophageal stenosis. Dilated. Lesion not amenable to dilation, and not attempted. - Gastritis. Biopsied. - LA Grade A reflux esophagitis. Biopsied. - Normal second portion of the duodenum. Biopsied. - Benign-appearing esophageal stenosis. Dilated. - LA Grade A reflux esophagitis. Biopsied. - Gastric mucosal atrophy. - Chronic gastritis. Biopsied. - Normal second portion of the duodenum. Recommendations : - Await pathology results. - Repeat upper endoscopy in 1 year for surveillance based on pathology results. - Return to GI clinic in 2 weeks. - Continue present medications. My findings are described in the full procedure note, which is enclosed. If I can be of further assistance, please feel free to contact me at . Sincerely, Giorgi Bauer, 07/25/2021 8:06:34 AM This report has been signed electronically.
[2021-07-25 08:10] VITALS: BP 132/79; BP 93/68; PULSE 81; RESP 18; O2SAT 98
[2021-07-25 08:15] VITALS: BP 116/74; BP 132/79; PULSE 76; RESP 16; O2SAT 98
[2021-07-25 08:20] VITALS: BP 111/67; BP 132/79; PULSE 80; RESP 16; TEMP 36.2; O2SAT 99
[2021-07-25 08:27] VITALS: BP 132/79
== END 2021-07-25 08:50 | disposition home or self-care (01) ==
LOC: EN 06:22 → AC 06:23
PROVIDERS: PCP Family Medicine; Referring Provider Family Medicine; Visit Provider Internal Medicine Gastroenterology
PROC: 0DJ08ZZ Inspection of Upper Intestinal Tract, Via Natural or Artificial Opening Endoscopic (ICD-10-PCS; CPT 43235; principal; 2021-07-25 07:25)
DX: K22.2 Esophageal obstruction (principal); K21.00 Gastro-esophageal reflux disease with esophagitis, without bleeding; K29.50 Unspecified chronic gastritis without bleeding; R13.19 Other dysphagia; E05.00 Thyrotoxicosis with diffuse goiter without thyrotoxic crisis or storm; J44.9 Chronic obstructive pulmonary disease, unspecified; F17.290 Nicotine dependence, other tobacco product, uncomplicated; Z79.890 Hormone replacement therapy; Z79.899 Other long term (current) drug therapy
CPT/HCPCS: 43239; 43248; 88305; 88313; 88341; 88342; J7120; C1769; J2405

== ENCOUNTER → 2021-08-01 14:23 | Outpatient (CLI) | payer OTHER, SELFPAY ==
[2021-08-01 16:17] LABS: CRP 5.37 mg/L (0.0-3.0); Rheumatoid Factor < 10.0 IU/mL (<15)
[2021-08-01 16:39] LABS: Erythrocyte Sedimentation Rate 6 mm/hr (0-30)
[2021-08-03 14:10] LABS: Anti-Centromere B Ab <0.2 AI (0.0-0.9)
[2021-08-03 14:31] LABS: ANTINUCLEAR ANTIBODIES DIRECT Negative (Negative); Anti-Histone Abs 0.4 Units (0.0-0.9); Anti-dsDNA Ab <1 IU/mL (0-9)
[2021-08-04 13:07] LABS: Cytoplasmic Ab (C-ANCA) <1:20 titer (Neg:<1:20)
[2021-08-04 13:23] LABS: CCP IgG Antibodies 4 units (0-19); Perinuclear Ab (P-ANCA) <1:20 titer (Neg:<1:20)
== END ==
PROVIDERS: PCP Family Medicine; Referring Provider Internal Medicine Gastroenterology; Visit Provider Internal Medicine Gastroenterology
DX: R13.19 Other dysphagia (principal)
CPT/HCPCS: 36415; 85652; 86038; 86140; 86200; 86225; 86235; 86256; 86431

== ENCOUNTER → 2021-09-14 12:46 | Outpatient (CLI) | payer OTHER, SELFPAY ==
--- NOTE | 2021-09-14 14:02 | SP.MBSS_ITS ---
Modified Barium Swallow - Patient Information Study Date: 09/14/21 Study Time: 13:00 Direct Billable Minutes: 90 Total Minutes procedure & reportin Diagnosis: esophageal dysphagia R13.14 Referring Physician: Giorgi Bauer Reason for Referral: Pt. is referred for an objective videofluoroscopy study of the swallow due to patient complaints of food sticking in her throat and to r/o aspiration. Medical History: Pt. reports no significant medical history. She states she was referred to Dr. Bauer by her cryptologic technician technical. Pt. also reports she had a esophageal dialiation completed approximately 2 months ago and has been treated for acid reflux. Current Diet Ordered: Regular with Thin Dentition: WNL, Natural Teeth - Penetration-Aspiration Scale Penetration-Aspiration Scale: OBJECTIVE ASSESSMENT OF SWALLOW FUNCTION (QUANTITATIVE ? PER TRIAL): PENETRATION / ASPIRATION SCALE (CERNA): 1 = does not enter airway 2 = enters airway/above vocal folds/ejected 3 = enters airway/above vocal folds/not ejected 4 = enters airway/contacts vocal folds/ejected 5 = enters airway/contacts vocal folds/not ejected 6 = enters airway/below vocal folds/ejected 7 = enters airway/below vocal folds/not ejected despite effort 8 = enters airway/below vocal folds/no effort - Penetration-Aspiration Scale Score Thin Liquid via teaspoon Result: 1= does not enter airway Thin Liquid via teaspoon Trial 2 Result: 1= does not enter airway Thin Liquid via small single sip from cup Result: 1= does not enter airway Thin Liquid via sequential sips from cup Result: 2= enter airway/above vocal folds/ejected Thin Liquid via single sip from straw Result: 2= enter airway/above vocal folds/ejected Thin Liquid via sequential sips from straw Result: 2= enter airway/above vocal folds/ejected [place] Thick Liquid via small single sip from cup Result: 1= does not enter airway Honey Thick Liquid via small single sip from cup Result: 1= does not enter airway Pudding via teaspoon Result: 1= does not enter airway - esophageal scan completed Cookie via teaspoon Result: 1= does not enter airway Thin Liquid via small single sip from cup Trial 2 Result: 1= does not enter airway - Oral Phase Labial Seal: No Labial Escape Tongue Control During Bolus Hold: Cohesive bolus between tongue to palatal seal Bolus Preparation/Mastication: Timely and efficient chewing and mashing Bolus Transport/Lingual Motion: Brisk tongue motion Oral Residue: Trace residue lining oral structures - Pharyngeal Phase Initiation of Pharyngeal Swallow: Bolus head in valleculae - with pudding and cookie textures Soft Palate Elevation: No bolus between soft palate and pharyngeal wall Laryngeal Elevation: Comp. Superior move thyroid cart w/comp. apprx arytenoid cart-epig pet Anterior Hyoid Excursion: Partial anterior movement Epiglottic Movement: Complete inversion Laryngeal Vestibule Closure at Height of Swallow: Incomplete; narrow column of air/contrast in laryngeal vestibule - with sequential cup and straw sips Pharyngeal Stripping Wave: Present - complete Pharyngoesophageal Segment Opening: Complete distension and complete duration; no obstruction of flow Tongue Base Retraction: Trace column of contrast between tongue base & post. pharyngeal wall Pharyngeal Residue: Complete pharyngeal clearance - Esophageal Phase Esophageal Clearance: Esophageal retention - approximately 1/2 pudding bolus - Treatment Strategies Effects of treatment strategies attemped:: Pt. independently implemented re-swallow to clear oral residue with success. - Diagnosis/Impression Diagnosis: Mild oropharyngeal dysphagia R13.12 Impression: Pt. presents with oral phase dysphagia characterized by decreased anterior to posterior transfer of the bolus resulting in oral residuals along the tongue base. Pt. independently implemented a second swallow with each trial and this was effective in eliminating oral residue. Pt. presents with pharyngeal phase dysphagia characterized by mildly delayed initiation of the swallow reflex and decreased anterior hyoid excursion resulting in posterior pre-spill to the valleculae with pudding and cookie textures and decreased closure of the laryngeal vestibule with straw sips and sequential cup sips. This resulted in trace penetration with thin straw and sequential sips which was ejected from the laryngeal vestibule. No aspiration was observed during this study. Pt. did complain of food sticking in the area of valleculae after the swallow, but no residuals present during the study. Pt. presented with a functional swallow. An esophageal scan was completed with pudding texture, and esophageal retention was observed. - Recommendations Diet: Regular Textures, Thin Liquids Comment: Pt. recommended to implement reflux precautions of staying upright for 60 minutes following po intake. Compensatory Strategies: Small Bites, Small Sips, Multiple Swallows, Alternate bites/solids and sips/liquids, Sitting upright Recommend Repeat Modified Barium Swallow: No Need for Skilled Speech Therapy Services: No - No further ST warranted at this time Recommended Referrals: GI Consult - to address suspected esophageal retention Education Completed: 1. Described result of evaluation., 2. Pt understands evaluation & agrees with goals and treatment plan. - Status Active ST Patient: Not Active - Contact Information [facility] Speech Therapy:: [place] [address] [place], [place] [address] Elicia Young M.A., CCC-CORRECTIONAL TREATMENT SPECIALIST [email or web address] 09/14/21 15:06
== END ==
PROVIDERS: PCP Family Medicine; Referring Provider Internal Medicine Gastroenterology; Visit Provider Internal Medicine Gastroenterology
DX: R13.19 Other dysphagia (principal)
CPT/HCPCS: 74230; 92611

== ENCOUNTER 2022-01-15 07:32 | Outpatient (CLI) | payer OTHER, SELFPAY ==
[2022-01-15 10:02] LABS: Anion Gap 3 (5-15); BUN 17 mg/dL (7-18); BUN/Creat Ratio 21.8 RATIO (10-20); Calcium,Total 9.1 mg/dL (8.5-10.1); Chloride 110 mmol/L (98-107); Cholesterol 184 mg/dL (200); Creatinine, Serum 0.78 mg/dL (0.55-1.02); EST Glomerular Filtration Rate 80 mL/min (>60); Est Glom Filt Rate - Afr Amer 96 mL/min (>60); Glucose 90 mg/dL (74-106); High Density Lipoprotein 64 mg/dL; Potassium 3.7 mmol/L (3.5-5.1); Sodium Level 140 mmol/L (136-145); T4 Free Direct 1.42 ng/dL (0.76-1.46); Thyroid Stim Hormone (TSH) 0.76 uIU/mL (0.358-3.74); Triglycerides 52 mg/dL; Very Low Density Lipoprotein 10 mg/dL (5-40)
== END 2022-01-15 23:59 | disposition home or self-care (01) ==
LOC: MTLAB 07:34
PROVIDERS: PCP Family Medicine; Referring Provider Family Medicine; Visit Provider Family Medicine
DX: Z00.00 Encounter for general adult medical examination without abnormal findings (principal)
CPT/HCPCS: 36415; 80048; 80061; 84439; 84443

== ENCOUNTER 2022-02-07 14:54 | Outpatient (CLI) | payer OTHER, SELFPAY | END 2022-02-07 23:59 | disposition home or self-care (01) | LOC: LABSPEC 14:56 | PROVIDERS: PCP Family Medicine; Visit Provider Family Medicine | DX: R10.9 Unspecified abdominal pain (principal) | CPT/HCPCS: 87086; 87088 ==

== ENCOUNTER 2022-03-21 07:49 | Day surgery (SDC) | payer OTHER, SELFPAY ==
[2022-03-21 08:03] VITALS: BP 121/86; PULSE 95; RESP 16; TEMP 36.6; O2SAT 100
[2022-03-21] MEDS: Lidocaine Jelly 2% 20 ML Syringe (URO-JET) 1 APPLIC (08:33)
== END 2022-03-21 08:36 | disposition home or self-care (01) ==
PROVIDERS: PCP Family Medicine; Referring Provider Family Medicine; Visit Provider Internal Medicine Gastroenterology
PROC: F00ZJWZ Instrumental Swallowing and Oral Function Assessment using Swallowing Equipment (ICD-10-PCS; CPT 43235; principal; 2022-03-21 07:55)
DX: K22.4 Dyskinesia of esophagus (principal)
CPT/HCPCS: 91010

== ENCOUNTER 2022-05-24 07:00 | Outpatient (RCR) | payer OTHER, SELFPAY ==
--- NOTE | 2022-04-18 10:47 | ST ---
[facility] Speech Pathology [address] [place] [address] Modified Barium Swallow Study MR#: [id number] Acct: [id number] Name: ZUNILDA AJ Rep #: [id number] : 1960 61 From: Elicia Young M.A., [facility]-AUTOMATION MANAGER Modified Barium Swallow - Patient Information Study Date: 09/14/21 Study Time: 13:00 Direct Billable Minutes: 90 Total Minutes procedure & reportin Diagnosis: esophageal dysphagia R13.14 Referring Physician: Giorgi Bauer Reason for Referral: Pt. is referred for an objective videofluoroscopy study of the swallow due to patient complaints of food sticking in her throat and to r/o aspiration. Medical History: Pt. reports no significant medical history. 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 Pt. also reports she had a esophageal dialiation completed approximately 2 months ago and has been treated for acid reflux. Current Diet Ordered: Regular with Thin Dentition: WNL, Natural Teeth - Penetration-Aspiration Scale Penetration-Aspiration Scale: OBJECTIVE ASSESSMENT OF SWALLOW FUNCTION (QUANTITATIVE ? PER TRIAL): PENETRATION / ASPIRATION SCALE (CERNA): 1 = does not enter airway 2 = enters airway/above vocal folds/ejected 3 = enters airway/above vocal folds/not ejected 4 = enters airway/contacts vocal folds/ejected 5 = enters airway/contacts vocal folds/not ejected 6 = enters airway/below vocal folds/ejected 7 = enters airway/below vocal folds/not ejected despite effort 8 = enters airway/below vocal folds/no effort - Penetration-Aspiration Scale Score Thin Liquid via teaspoon Result: 1= does not enter airway Thin Liquid via teaspoon Trial 2 Result: 1= does not enter airway Thin Liquid via small single sip from cup Result: 1= does not enter airway Thin Liquid via sequential sips from cup Result: 2= enter airway/above vocal folds/ejected Thin Liquid via single sip from straw Result: 2= enter airway/above vocal folds/ejected Thin Liquid via sequential sips from straw Result: 2= enter airway/above vocal folds/ejected [place] Thick Liquid via small single sip from cup Result: 1= does not enter airway Honey Thick Liquid via small single sip from cup Result: 1= does not enter airway Pudding via teaspoon Result: 1= does not enter airway - esophageal scan completed Cookie via teaspoon Result: 1= does not enter airway Thin Liquid via small single sip from cup Trial 2 Result: 1= does not enter airway - Oral Phase Labial Seal: No Labial Escape Tongue Control During Bolus Hold: Cohesive bolus between tongue to palatal seal Bolus Preparation/Mastication: Timely and efficient chewing and mashing Bolus Transport/Lingual Motion: Brisk tongue motion Oral Residue: Trace residue lining oral structures - Pharyngeal Phase Initiation of Pharyngeal Swallow: Bolus head in valleculae - with pudding and cookie textures Soft Palate Elevation: No bolus between soft palate and pharyngeal wall Laryngeal Elevation: Comp. Superior move thyroid cart w/comp. apprx arytenoid cart-epig pet Anterior Hyoid Excursion: Partial anterior movement Epiglottic Movement: Complete inversion Laryngeal Vestibule Closure at Height of Swallow: Incomplete; narrow column of air/contrast in laryngeal vestibule - with sequential cup and straw sips Pharyngeal Stripping Wave: Present - complete Pharyngoesophageal Segment Opening: Complete distension and complete duration; no obstruction of flow Tongue Base Retraction: Trace column of contrast between tongue base & post. pharyngeal wall Pharyngeal Residue: Complete pharyngeal clearance - Esophageal Phase Esophageal Clearance: Esophageal retention - approximately 1/2 pudding bolus - Treatment Strategies Effects of treatment strategies attemped:: Pt. independently implemented re-swallow to clear oral residue with success. - Diagnosis/Impression Diagnosis: Mild oropharyngeal dysphagia R13.12 Impression: Pt. presents with oral phase dysphagia characterized by decreased anterior to posterior transfer of the bolus resulting in oral residuals along the tongue base. Pt. independently implemented a second swallow with each trial and this was effective in eliminating oral residue. Pt. presents with pharyngeal phase dysphagia characterized by mildly delayed initiation of the swallow reflex and decreased anterior hyoid excursion resulting in posterior pre-spill to the valleculae with pudding and cookie textures and decreased closure of the laryngeal vestibule with straw sips and sequential cup sips. This resulted in trace penetration with thin straw and sequential sips which was ejected from the laryngeal vestibule. No aspiration was observed during this study. Pt. did complain of food sticking in the area of valleculae after the swallow, but no residuals present during the study. Pt. presented with a functional swallow. An esophageal scan was completed with pudding texture, and esophageal retention was observed. - Recommendations Diet: Regular Textures, Thin Liquids Comment: Pt. recommended to implement reflux precautions of staying upright for 60 minutes following po intake. Compensatory Strategies: Small Bites, Small Sips, Multiple Swallows, Alternate bites/solids and sips/liquids, Sitting upright Recommend Repeat Modified Barium Swallow: No Need for Skilled Speech Therapy Services: No - No further ST warranted at this time Recommended Referrals: GI Consult - to address suspected esophageal retention Education Completed: 1. Described result of evaluation., 2. Pt understands evaluation & agrees with goals and treatment plan. - Status Active ST Patient: Not Active - Contact Information [facility] Speech Therapy:: [place] [address] [place], [place] [id number] Elicia Young M.A., CCC-AUTOMATION MANAGER [email or web address] 09/14/21 15:06
--- NOTE | 2022-04-18 11:20 | HP.SP.EVAL ---
History - History Date of Eval: 04/18/22 Medical Diagnosis (from RX): esophageal dysphagia (R13.19) Previous speech therapy: No Results: MBSS on 09/14/21 Other Relevant Medical History/Diagnoses/Surgery: ZUNILDA AJ is a 62 year old female who presents to [facility] on 04[facility]18[facility]22 with concerns for dysphagia. Pt referred by Dr. Bauer for pharyngeal strengthening d/t Pt's consistent feelings of odynophagia. Pt participated in an MBSS in August 2021 which revealed oral and pharyngeal phases of her swallow grossly WNL with some mild deficits in hyolaryngeal elevation. Pt reports no episodes of penetration/aspiration during PO intake. Pt nonremarkable for PNA. Pt previously treated by Dr. Baldwin, ENT who treated Pt for GERD with medication and alterations in diet which revealed no change in odynophagia. Pt reports feeling like there is a lump on the right side of her throat. Pt denies participation in imaging of her throat for structural abnormalities. There was no anterior imaging completed during her MBSS. Pt to participate in allergy testing as well as esophageal manometry for her GI POC. Smoking Status: Current every day smoker Hx Tobacco Use: Yes - Pain Is pain an issue with your current prescribed condition?: No Patient Allergies - Allergies Allergies Sulfa (Sulfonamide Antibiotics) Adverse Reaction (Verified 12/06/21 06:37) Rash Objective Dysphagia - Swallowing Impairment Other: odynophagia - Impact Impact on Safety & Functioning: No Limitations Comments: quality of life - Recommendations Modified Barium Swallow/Cookie Swallow Recommended: No Swallowing Treatment: Yes - Diet Texture Recommendations Solids: Regular (Level 7) Liquids: Thin (Level 0) - Safety Saftey Precautions/Swallowing Recommendations (Check all that Apply): Reduce Distractions - Results Swallowing Within Normal Limits: Yes Additional: Esophageal Dysphagia (R13.19) Severity: Mild Modified Barium Results Hx MBS Report Entered: Yes MBS Results (from prior exam): 04/18/22 10:47 Speech Therapy by Kiley Reina [facility] Speech Pathology [address] [place] [address] Modified Barium Swallow Study MR#: [id number] Acct: [id number] Name: ZUNILDA AJ SHAYLA Rep #: [id number] : 1960 61 From: Elicia Young M.A., [facility]-FOLDING MACHINE OPERATOR Modified Barium Swallow - Patient Information Study Date: 09/14/21 Study Time: 13:00 Direct Billable Minutes: 90 Total Minutes procedure & reportin Diagnosis: esophageal dysphagia R13.14 Referring Physician: Giorgi Bauer Reason for Referral: Pt. is referred for an objective videofluoroscopy study of the swallow due to patient complaints of food sticking in her throat and to r/o aspiration. Medical History: Pt. reports no significant medical history. 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 Pt. also reports she had a esophageal dialiation completed approximately 2 months ago and has been treated for acid reflux. Current Diet Ordered: Regular with Thin Dentition: WNL, Natural Teeth - Penetration-Aspiration Scale Penetration-Aspiration Scale: OBJECTIVE ASSESSMENT OF SWALLOW FUNCTION (QUANTITATIVE ? PER TRIAL): PENETRATION / ASPIRATION SCALE (CERNA): 1 = does not enter airway 2 = enters airway/above vocal folds/ejected 3 = enters airway/above vocal folds/not ejected 4 = enters airway/contacts vocal folds/ejected 5 = enters airway/contacts vocal folds/not ejected 6 = enters airway/below vocal folds/ejected 7 = enters airway/below vocal folds/not ejected despite effort 8 = enters airway/below vocal folds/no effort - Penetration-Aspiration Scale Score Thin Liquid via teaspoon Result: 1= does not enter airway Thin Liquid via teaspoon Trial 2 Result: 1= does not enter airway Thin Liquid via small single sip from cup Result: 1= does not enter airway Thin Liquid via sequential sips from cup Result: 2= enter airway/above vocal folds/ejected Thin Liquid via single sip from straw Result: 2= enter airway/above vocal folds/ejected Thin Liquid via sequential sips from straw Result: 2= enter airway/above vocal folds/ejected [place] Thick Liquid via small single sip from cup Result: 1= does not enter airway Honey Thick Liquid via small single sip from cup Result: 1= does not enter airway Pudding via teaspoon Result: 1= does not enter airway - esophageal scan completed Cookie via teaspoon Result: 1= does not enter airway Thin Liquid via small single sip from cup Trial 2 Result: 1= does not enter airway - Oral Phase Labial Seal: No Labial Escape Tongue Control During Bolus Hold: Cohesive bolus between tongue to palatal seal Bolus Preparation/Mastication: Timely and efficient chewing and mashing Bolus Transport/Lingual Motion: Brisk tongue motion Oral Residue: Trace residue lining oral structures - Pharyngeal Phase Initiation of Pharyngeal Swallow: Bolus head in valleculae - with pudding and cookie textures Soft Palate Elevation: No bolus between soft palate and pharyngeal wall Laryngeal Elevation: Comp. Superior move thyroid cart w/comp. apprx arytenoid cart-epig pet Anterior Hyoid Excursion: Partial anterior movement Epiglottic Movement: Complete inversion Laryngeal Vestibule Closure at Height of Swallow: Incomplete; narrow column of air/contrast in laryngeal vestibule - with sequential cup and straw sips Pharyngeal Stripping Wave: Present - complete Pharyngoesophageal Segment Opening: Complete distension and complete duration; no obstruction of flow Tongue Base Retraction: Trace column of contrast between tongue base & post. pharyngeal wall Pharyngeal Residue: Complete pharyngeal clearance - Esophageal Phase Esophageal Clearance: Esophageal retention - approximately 1/2 pudding bolus - Treatment Strategies Effects of treatment strategies attemped:: Pt. independently implemented re-swallow to clear oral residue with success. - Diagnosis/Impression Diagnosis: Mild oropharyngeal dysphagia R13.12 Impression: Pt. presents with oral phase dysphagia characterized by decreased anterior to posterior transfer of the bolus resulting in oral residuals along the tongue base. Pt. independently implemented a second swallow with each trial and this was effective in eliminating oral residue. Pt. presents with pharyngeal phase dysphagia characterized by mildly delayed initiation of the swallow reflex and decreased anterior hyoid excursion resulting in posterior pre-spill to the valleculae with pudding and cookie textures and decreased closure of the laryngeal vestibule with straw sips and sequential cup sips. This resulted in trace penetration with thin straw and sequential sips which was ejected from the laryngeal vestibule. No aspiration was observed during this study. Pt. did complain of food sticking in the area of valleculae after the swallow, but no residuals present during the study. Pt. presented with a functional swallow. An esophageal scan was completed with pudding texture, and esophageal retention was observed. - Recommendations Diet: Regular Textures, Thin Liquids Comment: Pt. recommended to implement reflux precautions of staying upright for 60 minutes following po intake. Compensatory Strategies: Small Bites, Small Sips, Multiple Swallows, Alternate bites/solids and sips/liquids, Sitting upright Recommend Repeat Modified Barium Swallow: No Need for Skilled Speech Therapy Services: No - No further ST warranted at this time Recommended Referrals: GI Consult - to address suspected esophageal retention Education Completed: 1. Described result of evaluation., 2. Pt understands evaluation & agrees with goals and treatment plan. - Status Active ST Patient: Not Active - Contact Information [facility] Speech Therapy:: [facility] [address] [place] [address] Elicia Young M.A. CCC-FOLDING MACHINE OPERATOR [email or web address] 09/14/21 15:06 Initialized on 04/18/22 10:47 - END OF NOTE Swallowing Performance Scale - Swallowing Performance Scale Swallowing Performance Scale Result: 2 Within Functional Limit Other - Other MBSS -: During evaluation today, direct education provided re: the results of Pt's previous MBSS completed in August 2021. This FOLDING MACHINE OPERATOR had rx new imaging prior to evaluation today given the length of time that has passed since her previous one. Pt called and reported nothing has changed since her previous study and that she would be comfortable utilizing the results of her last study. Pt still experiencing odynophagia. Discussed how her overall swallowing function appeared to be WNL with some esophageal retention in middle third of esophagus - which she is addressing with GI. Oriented Pt to anatomical physiology of the swallow and also provided education re: pharyngeal strengthening exercises to improve esophageal duration and hyolaryngeal elevation. Plan - Plan Plan: Will rx Pt for skilled outpatient tx to address deficits in pharyngeal dysphagia. Pt would benefit from training and education re: process of swallowing exercises to aid in oropharyngeal strengthening. Without skilled intervention, Pt is at risk for consuming a restrictive diet putting her for continued odynophagia. - Recommendations Treatment Warranted: Yes Treatment Warranted: Dysphagia - Progress Prognosis: Excellent - Frequency Frequency: 1x/Week Additional (Frequency): Pt to return in 3 weeks for follow up Duration: 3 Weeks - Goal #1-5 Goal #1: Jeanne will complete oropharyngeal exercises for 10-15 reps, 3x/day independently to improve PES opening/distention and hyolaryngeal elevation and excursion. Education - Patient has Indicated that the Following Identified Educational Needs: None The Patient has indicated that they have no educational or learning abilities that may effect their care.: Yes - Patient Instruction Patient Education: Diagnosis, Treatment Plan, Goals, Home Exercise Program Person Taught: Patient Teaching Method: Discussion, Demonstration, Handout Response to teaching: Return demonstration, Verbalize understanding
--- NOTE | 2022-08-15 10:10 | HP.SP.DC_ITS ---
ST Discharge Summary - Discharged: Discharge: ZUNILDA AJ is a 62 year old female who was seen for initial speech therapy dysphagia evaluation at [facility] on 04/18/22 secondary to dx of esophageal dysphagia. Pt attended initial evaluation and 1 follow up appointments to discuss oropharyngeal exercises to complete as a home program. Pt with previous hx of MBSS in September 14, 2021 recommending Regular solids IDDSI Level 7 and thin liquids. Jeanne reporting slight relief following implementation of the exercises, however the pain returns about an hour after finishing the exercises. Provided Jeanne with Drea and Yawning handout to add to her exercise repertoire. Pt reporting when the pain initially started she had a severe gag reflex and was waking up in the night gasping for air. Suggested to Pt neurology may be helpful. Pt had an appt scheduled with GI on June 12 and was to schedule a follow up with speech therapy after her appt. Pt is being d/c from OP speech therapy on this date d/t absence of follow-up. Per chart review, Pt has cont'd to follow-up with GI which is the most appropriate discipline for her at this time. Thank you for allowing me to participate the care of your Pt. Will reevaluate at Pt?s request following script from physician.
== END 2022-05-24 19:00 | disposition home or self-care (01) ==
LOC: SP 07:00
PROVIDERS: PCP Family Medicine; Referring Provider Internal Medicine Gastroenterology; Visit Provider Internal Medicine Gastroenterology
DX: R13.14 Dysphagia, pharyngoesophageal phase (principal)
CPT/HCPCS: 92526; 92610

== ENCOUNTER 2022-07-22 07:24 | Day surgery (SDC) | payer OTHER, SELFPAY ==
[2022-07-22] MEDS: Lactated Ringers 1,000 ML 15 ML IV (07:55)
[2022-07-22 08:06] VITALS: BP 137/78; PULSE 79; RESP 18; TEMP 36.3; O2SAT 100; BMI 26.2
--- NOTE | 2022-07-22 08:45 | IMM_PTH ---
PATIENT: ZUNILDA AJ LOC: EN U#:[id number] AGE/SX: 62/F ROOM: RE07/22/[address]: Dr. Giorgi Bauer DO : 1960 BED: DIS: 07/22/2022 SPEC #: [id number] RECD: 07/22/22 13:54 STATUS: DENISE REQ #: [id number] LALO: 07/22/22 08:[address]: Giorgi Bauer DEPT: IMMUNOHISTOCHEMISTRY RECD BY: Marielena Castillo ENTERED: 07/22/22 13:54 SP TYPE: IMMUNO OTHR DR: Dr. Cinda Yuen MD Tissues: A - Stomach, NOS Procedures: H Pylori (initial) KI-67 (add) P53 (add) PHYSICIAN & INSTITUTION [place] [address] SPECIMEN INFORMATION: Tissue Source: A ? Gastric cardia biopsy Clinical Info: Hypercontractile esophagus Specimen Number: [id number] CPT code: 60555, 02572 x2 METHODOLOGY: Deparaffinized sections of prefer/formalin-fixed tissue or PAP/DQ stained slides are incubated with monoclonal/polyclonal antibodies/oligonucleotide probes. Localization is made via biotin free immunoperoxidase method. Appropriate controls are performed and reacted as expected. Results on target cell population are indicated in the following table: RESULTS: ANTIBODY / CLONE RESULT Block A H Pylori (polyclonal) negative P53 (DO-7) negative Ki-67 (30-9) positive, low These tests were developed and their performance characteristics determined by [facility]. They may not have been cleared or approved by the U.S. Food and Drug Administration. The FDA has determined that such clearance or approval is not necessary. The above immunohistochemical/dualISH markers are ordered and reviewed by the Pathologist. INTERPRETATION: A. Gastric cardia, biopsy: No evidence of dysplasia. Negative for Helicobacter pylori organisms. AM:liz 07/24/2022
--- NOTE | 2022-07-22 08:45 | EGD_PTH ---
PATIENT: ZUNILDA AJ LOC: EN U#:[id number] AGE/SX: 62/F ROOM: RE07/22/[address]: Dr. Giorgi Bauer DO : 1960 BED: DIS: 07/22/2022 SPEC #: [id number] RECD: 07/22/22 11:07 STATUS: DENISE REAguilar #: [id number] LALO: 07/22/22 08:[address]: Giorgi Bauer DEPT: SURGICAL PATHOLOGY RECD BY: Alena Bowden ENTERED: 07/22/22 12:41 SP TYPE: EGD BIOPSY MIRIAM DR: Dr. Cinda Yuen MD Tissues: A - Gastric mucous membrane B - Esophagus, NOS Procedures: Special Stain Group II Surgery Specimen Level IV Alcian Blue/PAS (control) HEADER OPERATION: EGD, Botox injection PRE-OP DIAGNOSIS: Hypercontractile esophagus TISSUE SUBMITTED: A ? Gastric cardia biopsy, B ? Distal esophagus biopsy MICROSCOPIC DIAGNOSIS A. Gastric cardia, biopsy: Chronic active gastritis. Focal intestinal metaplasia. No evidence of dysplasia. See comment. B. Distal esophagus, biopsy: Gastroesophageal junctional mucosa with chronic inflammation. No evidence of goblet cell metaplasia. See comment. AM:liz 07/23/2022 COMMENT A. The results of immunohistochemistry for Helicobacter pylori will be reported separately ([id number]). Immunohistochemistry ([id number]) for P53 and Ki-67 will be performed and results will be reported separately. Alcian blue/PAS stain with matched control supports the above diagnosis. B. Alcian blue/PAS stain with matched control supports the above diagnosis. MICROSCOPIC DESCRIPTION Slides are reviewed. GROSS DESCRIPTION A - Received in fixative is one container labeled with the patient's name and designated gastric cardia biopsy. The specimen consists of multiple irregular fragments of light campbell soft tissue that in aggregate measure 1.5 x 0.5 x 0.1 cm. The specimen is totally submitted in one cassette. B - Received in fixative is one container labeled with the patient's name and designated distal esophagus biopsy. The specimen consists of two irregular fragments of light campbell soft tissue that in aggregate measure 0.6 x 0.3 x 0.1 cm. The specimen is totally submitted in one cassette. / NICK:liz 07/22/2022 TC:2 CPT: 27122 x2, 02584 x2
--- NOTE | 2022-07-22 09:25 | HP.PCM_ITS ---
History and Physical Date of Admission: 07/22/22 ALEXANDRA AJ, is a 62 F who presents to the office today for 3 month f/u esophageal dysphagia. Continues to have difficulty with swallowing. Has feeling of lump in throat. Denies urgent episodes or emergent intervention need. Yessi established with this clinic 07.17.21 for evaluation of esophageal dysphagia with onset 18 months prior. ENT seen with no diagnosis at that time. She has been evaluated and then reevaluated by speech therapy; they recommended oropharyngeal exercises for 10-15 reps, 3x/day independently to improve PES opening/distention and hyolaryngeal elevation and excursion. No improvement with PPI therapy, amitriptyline. 03/21/22 Esophageal manometry: EGJ normal relaxation Esophageal body: hypercontractile Finding: Hypercontractile Esophagus (jackhammer) PMH includes Graves disease, COPD and current smoker. FMH includes scleroderma, mother. EGD 07.25.21 with benign appearing esophageal stenosis that was dilated to 54F with a lesion not amenable to dilation; gastritis; LA Grade A reflux esophagitis. Biopsy pathology negative for H.Pylori. PPI 40mg BID and carafate 1g TID started. Esophagram 09.14.21 with mild oropharyngeal dysphagia. ROS Const Constitutional: Positive for fatigue ENT ENT: No difficulty swallowing Gastro GI: No abdominal pain, belching, bloating, change in bowel habits, change in stool character, coffee ground emesis, constipation, cramping, diarrhea, heartburn, difficulty swallowing, feeling full early, excessive flatus, incontinent of stools, Vomiting blood/hematemesis, Blood in stool, loose stools, Black,tarry stools, nausea/dyspepsia, pain with swallowing, vomiting or other Musc Musculoskeletal: Positive for muscle cramps; No joint pain Skin Skin: No yellowing of the eye or itchy eyes Psych Psychiatric: No anxiety and No depression Endo Endocrine: Positive for fatigue Aller/Imm Allergy/Immunologic: No itchy eyes Bull/Lymp Hematologic/Lymphatic: No easy bleeding or easy bruising Exam Const General: cooperative, healthy appearing and comfortable Orientation: alert, awake and oriented x3 Quality Reporting Tobacco Screening ([facility] 138) Smoking Status: Current every day smoker Assessment and Plan Assessment and Plan (1) Hypercontractile esophagus: ?Status:?Acute ?Plan: Abnormal manometry, we discussed results. Will treat with Botox, she is scheduled for EGD next month for Botox. f/u 2 wks later. She was previously referred to Allergy for further eval since certain foods exacerbate her complaints, printed referral given since there was an issue faxing it before. ? ? ? Orders: I have re-examined the patient. There are no clinical changes since date of exam.
[2022-07-22] MEDS: 0.9% Normal Saline (Pres. free 10 ML Vial (09:38)
[2022-07-22] MEDS: Botulinum Toxin A 100 Units Vial IJ (09:45)
[2022-07-22 10:00] VITALS: BP 109/69; BP 137/78; PULSE 82; RESP 16; TEMP 36.1; O2SAT 97
[2022-07-22 10:05] VITALS: BP 105/67; BP 137/78; PULSE 86; RESP 16; O2SAT 96
--- NOTE | 2022-07-22 10:05 | OP.EGD_ITS ---
Patient Name: Yessi Smith Procedure Date: 07/22/2022 9:26 AM Date of : 1960 Age: 62 Procedure: Upper GI endoscopy Indications: Esophageal dysphagia Providers: Giorgi Bauer DO Medicines: Monitored Anesthesia Care Patient Profile: This is a 62 year old female. Refer to note in patient chart for documentation of history and physical. Patient has symptoms of dysphagia with both liquids and solids. Complications: No immediate complications. Procedure: Pre-Anesthesia Assessment: - Prior to the procedure, a History and Physical was performed, and patient medications and allergies were reviewed. The risks and benefits of the procedure and the sedation options and risks were discussed with the patient. All questions were answered and informed consent was obtained. Patient identification and proposed procedure were verified by the physician. Mental Status Examination: alert and oriented. Airway Examination: normal oropharyngeal airway and neck mobility. Respiratory Examination: clear to auscultation. CV Examination: normal. Prophylactic Antibiotics: The patient does not require prophylactic antibiotics. Prior Anticoagulants: The patient has taken no previous anticoagulant or antiplatelet agents. After reviewing the risks and benefits, the patient was deemed in satisfactory condition to undergo the procedure. The anesthesia plan was to use monitored anesthesia care (MAC). Immediately prior to administration of medications, the patient was re-assessed for adequacy to receive sedatives. The heart rate, respiratory rate, oxygen saturations, blood pressure, adequacy of pulmonary ventilation, and response to care were monitored throughout the procedure. The physical status of the patient was re-assessed after the procedure. After obtaining informed consent, the endoscope was passed under direct vision. Throughout the procedure, the patient's blood pressure, pulse, and oxygen saturations were monitored continuously. The gastroscope was introduced through the mouth, and advanced to the second part of duodenum. The upper GI endoscopy was accomplished without difficulty. The patient tolerated the procedure well. Scope In: 9:43:51 AM Scope Out: 9:52:48 AM Total Procedure Duration Time 0 hours 8 minutes 57 seconds Findings: The upper third of the esophagus, middle third of the esophagus and lower third of the esophagus were significantly tortuous. Abnormal motility was noted in the lower third of the esophagus. The cricopharyngeus was abnormal. There is spasticity of the esophageal body. The distal esophagus/lower esophageal sphincter is patulous. Primary peristaltic waves are noted. Area was successfully injected with 100 units botulinum toxin. LA Grade A (one or more mucosal breaks less than 5 mm, not extending between tops of 2 mucosal folds) esophagitis with no bleeding was found 36 to 38 cm from the incisors. Biopsies were taken with a cold forceps for histology. Verification of patient identification for the specimen was done. Estimated blood loss was minimal. Scattered moderate inflammation characterized by congestion (edema), erosions and erythema was found in the cardia. Biopsies were taken with a cold forceps for histology. Verification of patient identification for the specimen was done. Estimated blood loss was minimal. The second portion of the duodenum was normal. Impression: - Tortuous esophagus. - Abnormal esophageal motility, consistent with esophageal spasm. Injected with botulinum toxin. - LA Grade A reflux esophagitis. Biopsied. - Chronic gastritis. Biopsied. - Normal second portion of the duodenum. Recommendation: - Discharge patient to home. - Resume previous diet. - Continue present medications. - Await pathology results. Procedure Code(s): --- Professional --- 59749, 59, Esophagogastroduodenoscopy, flexible, transoral; with directed submucosal injection(s), any substance 37151, 51, Esophagogastroduodenoscopy, flexible, transoral; with biopsy, single or multiple CPT copyright 2017 [employer]. All rights reserved. The codes documented in this report are preliminary and upon laminating machine offbearer review may be revised to meet current compliance requirements. Giorgi Bauer DO 07/22/2022 10:04:58 AM This report has been signed electronically. Number of Addenda: 0 Note Initiated On: 07/22/2022 9:26 AM
--- NOTE | 2022-07-22 10:07 | OP.CCLET_ITS ---
07/22/2022 Cinda Yuen [address] [place] [address] Re : Upper GI endoscopy procedure for Yessi Luis Dear Dr. Yuen This procedure was performed on Friday, July 22, 2022. My impressions and recommendations are as follows: Impressions : - Tortuous esophagus. - Abnormal esophageal motility, consistent with esophageal spasm. Injected with botulinum toxin. - LA Grade A reflux esophagitis. Biopsied. - Chronic gastritis. Biopsied. - Normal second portion of the duodenum. Recommendations : - Discharge patient to home. - Resume previous diet. - Continue present medications. - Await pathology results. My findings are described in the full procedure note, which is enclosed. If I can be of further assistance, please feel free to contact me at . Sincerely, Giorgi Bauer, 07/22/2022 10:04:58 AM This report has been signed electronically.
[2022-07-22 10:10] VITALS: BP 115/76; BP 137/78; PULSE 82; RESP 16; O2SAT 96
[2022-07-22 10:15] VITALS: BP 120/74; BP 137/78; PULSE 78; RESP 16; TEMP 36.4; O2SAT 98
[2022-07-22 10:37] VITALS: BP 137/78
== END 2022-07-22 10:44 | disposition home or self-care (01) ==
LOC: EN 07:26 → AC 07:29
PROVIDERS: PCP Family Medicine; Referring Provider Family Medicine; Visit Provider Internal Medicine Gastroenterology
PROC: 0DJ08ZZ Inspection of Upper Intestinal Tract, Via Natural or Artificial Opening Endoscopic (ICD-10-PCS; CPT 43235; principal; 2022-07-22 08:40)
DX: K21.00 Gastro-esophageal reflux disease with esophagitis, without bleeding (principal); J44.9 Chronic obstructive pulmonary disease, unspecified; R13.10 Dysphagia, unspecified; K29.50 Unspecified chronic gastritis without bleeding; F17.200 Nicotine dependence, unspecified, uncomplicated; Z79.899 Other long term (current) drug therapy; K22.4 Dyskinesia of esophagus; K31.A0 Gastric intestinal metaplasia, unspecified
CPT/HCPCS: 43239; 43236; 88305; 88313; 88341; 88342; J7120; J0585; J3490

== ENCOUNTER → 2022-10-31 | Outpatient (CLI) | payer OTHER, SELFPAY ==
--- NOTE | 2022-10-31 15:02 | PFTCOMP ---
COMPLETE PULMONARY FUNCTION TEST INTERPRETATION Brief HPI: Patient is a 62-year-old female, currently under the care of myself, who presents to [facility] for complete pulmonary function tests secondary to diagnosis of COPD. Respiratory therapist reports good effort and reproducible results. Interpretation: Forced expiration spirometry shows a moderately severe large airways obstructive ventilatory defect with an FEV1 of 56% predicted. There is a significant bronchodilator response in FVC and FEV1 by strict ATS criteria. Spirograms are of good quality and plateau slowly, indicating slowly emptying areas of the lungs. The respiratory flow volume loop shows decreased expiratory flow rates at all lung volumes consistent with airway obstruction. Lung volumes by body plethysmography show an elevated total lung capacity at 5.25 L, 118% predicted. FRC and RV are elevated out of proportion. Lung volume measurements are consistent with hyperinflation and air-trapping. Diffusion capacity by carbon monoxide is normal at 82% predicted. The airway resistance is slightly elevated. Compared to previous pulmonary function tests from 11/16/2020, there is been significant worsening in all measured values and air-trapping. Impression: Partially reversible moderately severe large airways obstructive ventilatory defect resulting in air trapping with hyperinflation and significant worsening compared to previous testing.
== END | disposition home or self-care (01) ==
LOC: PSN 06:47
PROVIDERS: PCP Family Medicine; Referring Provider Internal Medicine Critical Care Medicine; Visit Provider Internal Medicine Critical Care Medicine
DX: J44.9 Chronic obstructive pulmonary disease, unspecified (principal)
CPT/HCPCS: 94060; 94726; 94729

== ENCOUNTER → 2022-12-18 | Outpatient (CLI) | payer OTHER, SELFPAY | END | disposition home or self-care (01) | LOC: MFPLAB 09:58 | PROVIDERS: PCP Family Medicine; Referring Provider Family Medicine; Visit Provider Nurse Practitioner Family | DX: R10.9 Unspecified abdominal pain (principal) | CPT/HCPCS: 87086; 87088 ==

== ENCOUNTER 2022-12-23 11:01 | Emergency (ER) | payer OTHER, SELFPAY ==
[2022-12-23 11:02] VITALS: BP 153/80; PULSE 91; RESP 18; TEMP 36; O2SAT 99
[2022-12-23 11:15] VITALS: BMI 25.8
--- NOTE | 2022-12-23 11:23 | EKG12_ITS ---
Test Reason : Blood Pressure : / mmHG Vent. Rate : 078 BPM Atrial Rate : 078 BPM P-R Int : 168 ms QRS Dur : 078 ms QT Int : 374 ms P-R-T Axes : 068 016 065 degrees QTc Int : 426 ms Normal sinus rhythm Nonspecific ST abnormality Abnormal ECG Confirmed by JENNIFER PORTILLO, DEBORAH ([id number]), newspaper managing editor CLINT MONTOYA ([id number]) on 12/24/2022 9:55:36 AM Referred By: FORD Confirmed By:DEBORAH RODRIGUEZ MD
[2022-12-23 11:24] VITALS: O2SAT 100
--- NOTE | 2022-12-23 11:25 | RAD_ITS ---
STUDY: X-RAY CHEST REASON FOR EXAM: Female, 62 years old. Sternal chest pain. TECHNIQUE: Single AP portable view of the chest. COMPARISON: Comparison is made with prior study dated 11/26/2016. FINDINGS: EKG electrodes are seen. The lungs are clear and expanded. There is no demonstrated pleural abnormality. Normal size heart. Normal mediastinum and kaveh. Normal visualized pulmonary arteries. There is atherosclerotic tortuosity of the aortic arch and descending thoracic aorta. There are diffuse degenerative changes of the visualized thoracic spine. Metallic surgical clip is seen overlying the left proximal humerus suggestive of prior rotator cuff surgery. There is no demonstrated abnormality of the visualized soft tissue structures of the upper abdomen. RAD/Chest 1 View (Portable) IMPRESSION: No acute abnormality is seen. Electronically Signed: Chai Miramontes MD at 12:03 EST ,
[2022-12-23 11:33] LABS: Absolute Lymphocyte Count 3.29 X10^3/uL (0.83-4.51); Absolute Neutrophil Count 5.4 X10^3/uL (2.0-7.7); Basophil# 0.06 X10^3/uL; Basophil% 0.6 % (0-1); Eosinophil# 0.21 X10^3/uL; Eosinophils% 2.2 % (0-5); Hematocrit 44.4 % (37-47); Lymphocyte # 3.29 X10^3/ul (0.83-4.51); Lymphocyte % 34.5 % (19-41); Mean Corp Hgb Conc 33.8 g/dL (32-36); Mean Corpuscular Hgb 30.6 pg (27.0-32.0); Mean Corpuscular Volume 90.6 fL (81-99); Mean Platelet Vol. 9.4 fl (6.2-12.0); Monocyte# 0.52 X10^3/uL; Monocyte% 5.5 % (0-10); NRBC Flagged by Analyzer 0 % (0-5); Neutrophil # 5.43 X10^3/uL (2.7-7.7); Platelet Count 187 K/mm3 (150-450); RBC Distribution Width CV 12.7 % (11.6-14.6); RBC Distribution Width SD 42.1 fl (35.1-43.9); White Blood Count 9.5 K/mm3 (4.4-11.0)
[2022-12-23 11:56] LABS: Anion Gap 4 (5-15); BUN 8 mg/dL (7-18); BUN/Creat Ratio 11.3 RATIO (10-20); Calcium,Total 9.5 mg/dL (8.5-10.1); Chloride 106 mmol/L (98-107); Creatinine, Serum 0.71 mg/dL (0.55-1.02); EST Glomerular Filtration Rate 89 mL/min (>60); Est Glom Filt Rate - Afr Amer 107 mL/min (>60); Estimated Creatinine Clearance 64.14 ml/min; Glucose 95 mg/dL (74-106); Potassium 3.5 mmol/L (3.5-5.1); Sodium Level 139 mmol/L (136-145); Troponin-I HS 20 pg/mL (3.0-54.0)
[2022-12-23 12:06] VITALS: PULSE 75; RESP 14; O2SAT 99
--- NOTE | 2022-12-23 12:30 | EDS_ITS ---
HPI History of Present Illness Chief Complaint: Chest Pain Detail of Chief Complaint: Chest pain around 1035 today. Informant: patient Onset/Context/Timing Onset: Today and Hours Activity at onset: sudden Timing: Continuous Quality: Positive for Burning Location: Substernal Current Severity: Mild Maximum Severity: Mild Relieved By: Nothing Associated Symptoms: Positive for Nausea; Negative for Vomiting, Diaphoresis, Dyspnea, Cough, Fever, Lightheadedness, Acid Reflux or Palpitations Narrative Narrative: 62-year-old female history of COPD and asthma. Raynaud's. No cardiac history. No prior cardiac work-up. Today was at home sitting in her desk. And had midsternal chest discomfort. No radiation to her neck jaw, arm or back. No shortness of breath or diaphoresis. Mild nausea. No recent exertional chest pain or shortness of breath. No history of DVT or PE. No recent travel, surgery immobilization. No hemoptysis. No leg pain or swelling. No back pain.. Nothing is particularly made the pain better or worse. No prior history. She did have a Botox injection of her esophagus earlier this year which caused her to have reflux. Prior Similar Symptoms: No Recent Illness/Hospitalization: No CVD Risk Factors: Negative for Hypertension, Diabetes, Hypercholesterolemia, Family History 1' </=55 or Smoking PE Risk Factors: Negative for Recent Travel/Surgery, Recent Immobilization, Prior DVT or PE, Cancer or OCP + Smoking + >/=35 TAD Risk Factors: Negative for Marfan's Syndrome [facility] Medical History Abnormal PFT Alcohol use Asthma Cancer COPD (chronic obstructive pulmonary disease) Difficulty swallowing Esophageal dysphagia Injury of back Leg cramps Post-menopausal Shortness of breath on exertion Skin cancer Smoker Stage 1 mild COPD by GOLD classification Thyroid disease Tobacco abuse Wears glasses Home Medications levothyroxine 100 mcg tablet (Synthroid) 100 mcg PO DAILY 12/08/18 [History Last Taken 07/22/22] latanoprost 0.005 % eye drops 1 drp RIGHT EYE DAILY 07/17/21 [History Last Taken Unknown] sour evans extract 1,000 mg capsule (Tart Evans Extract) 1,000 mg PO DAILY 07/17/21 [History Last Taken Unknown] lgwdnnlr-uid-ynfnzpqe acid 250 mg-herbal 87.5 mg chewable tablet (Airborne (ascorbic acid)) 2 tab PO DAILY 07/23/21 [History Last Taken 07/25/21 05:00] turmeric 400 mg capsule 400 mg PO DAILY 09/07/21 [History Last Taken Unknown] beclomethasone dipropionate 80 mcg/actuation HFA breath activated aerosol (Qvar RediHaler) 2 inh inhalation Q12H #10.6 grams 08/02/22 [Rx Last Taken Unknown] albuterol sulfate 90 mcg/actuation aerosol inhaler 2 puff inhalation PRN PRN SOB #8.5 grams 11/01/22 [Rx Last Taken Unknown] prednisone 10 mg tablet 10 mg PO DAILY #20 tabs 11/06/22 [Rx Last Taken Unknown] Allergy/AdvReac Type Severity Reaction Status Date / Time Sulfa (Sulfonamide AdvReac Rash Verified 12/23/22 11:02 Antibiotics) Family History Brother Thyroid disorder Brothers 1, 2, and 3 Brother Guillain Paul? syndrome Brother 3 Mother Lupus Father Myocardial infarction Surgical History History of back surgery History of cataract surgery History of knee surgery History of rotator cuff surgery Hx of colonoscopy Hx of LASIK Hx of tonsillectomy stereotactic BX Social History Smoking Status: Current every day smoker tobacco type: cigars per week: 2 Tobacco: How many years used: 11 second hand exposure: Yes alcohol intake: current alcohol intake frequency: a few times a week Alcohol type: hard liquor substance use type: does not use caffeine: Yes what type of physical activity do you participate in: walking and running frequency: daily ROS ROS ED ROS Narrative Denies recent illness. Review of Systems ROS Unobtainable: Denies due to encephalopathy Constitutional Constitutional ED: Denies chills or fever(s) Eyes Eyes: Reports none ENT ENT ED: Denies ear pain Cardiovascular Cardiovascular: Reports as per HPI and chest pain; Denies palpitations or racing heartbeat Respiratory/Chest Respiratory/Chest: Denies cough or dyspnea Gastrointestinal Gastrointestinal: Reports nausea; Denies abdominal pain, constipation, diarrhea, melena or vomiting Genitourinary Genitourinary ED: Denies dysuria or hematuria Musculoskeletal Musculoskeletal: Denies arthralgias Integumentary Denies abscess Neurologic Neurologic: Denies headache(s) Psychiatric Psychiatric: Denies anxiety or depression Endocrine Endocrinology: Denies cold intolerance Hematologic/Lymphatic Hematologic/Lymphatic: Denies easy bleeding or easy bruising Allergic/Immunologic Allergic/Immunologic ED: Denies mouth swelling or tongue swelling EXAM Physical Exam Narrative Exam Narrative: 62-year-old female vital signs are stable afebrile. Pulse ox 99% on room air no signs hypoxia. No distress. bedside. H EENT exam unremarkable. Neck nontender. No JVD. Lungs clear to auscultation bilaterally. Heart regular rhythm no murmur. Chest wall nontender. Abdomen soft nontender. No epigastric or right upper quadrant pain. Moving all 4 extremities. Calves are nontender, no edema or cords. Back nontender. Neurologic exam normal. Equal symmetrical radial pulses. Const Vital Signs: 12/23/22 11:02 12/23/22 11:15 12/23/22 11:24 Temperature 96.8 F L Temperature Source Temporal Pulse Rate 91 Respiratory Rate 18 Respiratory Effort Normal Non-Labored Blood Pressure 153/80 H Blood Pressure Mean 104 Pulse Ox 99 100 Oxygen Delivery Method Room Air Room Air 12/23/22 12:06 12/23/22 13:51 Temperature Temperature Source Pulse Rate 75 73 Respiratory Rate 14 16 Respiratory Effort Blood Pressure 148/80 H Blood Pressure Mean 102 Pulse Ox 99 96 Oxygen Delivery Method Room Air Positive well nourished and well developed; Negative for obese, cachectic, contractures or unkempt General Appearance ED: well developed and NAD; Negative for unkempt, cachectic, contractures or pallor Nutritional Appearance: Negative for cachectic or obese HEENT Reports moist mucous membranes normocephalic and atraumatic; Negative for trauma or tenderness Eyes PERRL and EOMs intact bilaterally General Eye ED: Negative for pale conjunctiva or scleral icterus Neck no lymphadenopathy, supple and no JVD General: Negative for tenderness Chest Wall inspection of chest normal and palpation of chest normal Chest: Negative for tenderness Resp normal respiratory effort and clear to auscultation bilaterally Effort and Inspection: Negative for respiratory distress Auscultation: Negative for rales, rhonchi or wheezes Cardio regular rate, regular rhythm, S1 normal heart sound, S2 normal heart sound and no murmurs Rate: Negative for bradycardia or tachycardic Rhythm: Negative for abnormal rhythm Peripheral Pulses: pulses 2+ throughout GI normal to inspection, nondistended, normoactive bowel sounds, soft to palpation, non-tender, non-distended and no masses; Negative for hepatosplenomegaly Auscultation: Negative for hyperactive bowel sounds Palpation: Negative for splenomegaly or mass Back/Spine no CVA tenderness and no thoracic nor lumbar tenderness General Back: CVA tenderness Cervical Spine: Negative for cervical spine tenderness Extremity normal to inspection General Extremety ED: Negative for edema or pulses abnormal General Extremity: Negative for edema or pulses abnormal Neuro oriented x3 and CN's II-XII intact bilaterally Sensorium / Orientation: awake, alert, oriented to person, oriented to place and oriented to time; Negative for confused, lethargic or stuporous Motor Exam: strength 5/5 throughout Psych mental status grossly normal Appearance: Negative for unkempt Attitude: No agitated Mood & Affect: Negative for depressed, anxious or tearful Skin no rashes or lesions noted and no wounds General Skin Exam: Negative for jaundice or pallor Rashes: No rashes noted Trauma: Negative for abrasion or laceration Heart Score History: Slightly/Non-Suspicious ECG: Normal Age: >45 - <65 years Risk Factors: No Risk Factors Troponin: </= Normal Limit Score: 1 MDM MDM MDM Narrative Medical decision making narrative: 62-year-old midsternal chest pain. Clinically does not seem to be cardiac. No recent exertional chest pain or shortness of breath. No history of DVT or PE or risk factors. No leg pain or swelling. The pain is not reproducible. It may or may not be GI. She is undergoing cardiac work-up is negative. She will get a repeat EKG and repeat troponin. Patient states that she had a Botox injection I believe of her esophagus and since that time has had some intermittent reflux. Repeat exam patient is doing well at 2:15 PM. Her entire work-up is negative. This may or may not be secondary to esophageal spasm or reflux it does not appear to be cardiac given normal EKG and normal troponins. She and her are comfortable with her being discharged home. She has had no recent exertional chest pain. She will be discharged to follow-up with her primary care physician Dr. Cinda Yuen. Patient was given GI cocktail and Protonix she has had some improvement of her symptoms. Lab Data Attestation: I reviewed the patient's lab results. Lab results narrative: CBC normal. White count of 9. H&H 15 and 44. Platelets 187. Electrolytes unremarkable gap of 4 normal BUN and creatinine. Glucose of 95. Troponin 20. Chest x-ray no acute process. Interpreted by myself and the radiologist. Lipase normal at 87. Liver enzymes unremarkable. Second troponin is normal at 52. Labs: Laboratory Results - last 24 hr 12/23/22 12/23/22 12/23/22 11:17 11:17 11:17 WBC 9.5 RBC 4.90 Hgb 15.0 Hct 44.4 MCV 90.6 MCH 30.6 MCHC 33.8 RDW Std Deviation 42.1 RDW Coeff of Richard 12.7 Plt Count 187 MPV 9.4 Immature Gran % (Auto) 0.200 Neut % (Auto) 57.0 Lymph % (Auto) 34.5 Ida % (Auto) 5.5 Eos % (Auto) 2.2 Baso % (Auto) 0.6 Absolute Neuts (auto) 5.4 Absolute Lymphs (auto) 3.29 Nucleated RBC % 0 Sodium 139 Potassium 3.5 Chloride 106 Carbon Dioxide 29.0 Anion Gap 4 L BUN 8 Creatinine 0.71 Estim Creat Clear Calc 64.14 Est GFR (MDRD) Af Amer 107 Est GFR (MDRD) Non-Af 89 BUN/Creatinine Ratio 11.3 Glucose 95 Calcium 9.5 Total Bilirubin 0.60 Direct Bilirubin 0.13 AST 23 ALT 24 Alkaline Phosphatase 98 Troponin I High Sens 20 Total Protein 7.4 Albumin 3.9 Globulin 3.5 Lipase 12/23/22 12/23/22 11:17 13:25 WBC RBC Hgb Hct MCV MCH MCHC RDW Std Deviation RDW Coeff of Richard Plt Count MPV Immature Gran % (Auto) Neut % (Auto) Lymph % (Auto) Ida % (Auto) Eos % (Auto) Baso % (Auto) Absolute Neuts (auto) Absolute Lymphs (auto) Nucleated RBC % Sodium Potassium Chloride Carbon Dioxide Anion Gap BUN Creatinine Estim Creat Clear Calc Est GFR (MDRD) Af Amer Est GFR (MDRD) Non-Af BUN/Creatinine Ratio Glucose Calcium Total Bilirubin Direct Bilirubin AST ALT Alkaline Phosphatase Troponin I High Sens 52 Total Protein Albumin Globulin Lipase 87 Radiography Chest X-Ray - ED: 1 View, Read by ED Physician, Read by Radiologist, Heart, Lungs, Mediastinum, Bony Structures, No Acute Disease and Chronic Changes Diagnostic Testing: Clinical Impression(s) from Imaging Studies Chest X-Ray 12/23/22 11:25 IMPRESSION: No acute abnormality is seen. Electronically Signed: Chai Miramontes MD at 12:03 EST , Chest x-ray, portable, single view shows no acute abnormality. Normal cardiac silhouette mediastinum. Interpreted both by myself and the radiologist we agree. Rhythm Strip Rhythm Strip: Sinus Rhythm Rate: 78 Ectopy: None EKG Initial EKG: Attestation: I personally reviewed and interpreted this EKG as follows: Interpretation: Sinus Rhythm and No Acute Injury Pattern Comments: Normal sinus rhythm rate of 78 no acute signs of MN or ischemia. Unchanged from prior EKG from 2014. Prior EKG tracings: available for review Prior: Unchanged Follow-up EKG: Attestation: I personally reviewed and interpreted this EKG as follows: Interpretation: Sinus Rhythm and No Acute Injury Pattern Comments: Repeat EKG at 1:10 PM. Shows again normal sinus rhythm rate of 73 no acute signs of MN or ischemia. No acute change from the first or the prior. Prior EKG tracings: available for review Prior: Unchanged Discharge Plan Triage Chief Complaint: Chest Pain ED Provider: Nikhil Mullins Dx/Rx/DC Orders Clinical Impression: Chest pain, History of COPD, History of Raynaud's syndrome, Hx of esophageal reflux Instructions: ED Chest Pain, Uncertain Cause Prescriptions: No Action Tart Evans Extract 1,000 mg capsule 1,000 mg PO DAILY latanoprost 0.005 % drops 1 drp RIGHT EYE DAILY turmeric 400 mg capsule 400 mg PO DAILY prednisone 10 mg tablet 10 mg PO DAILY Qty: 20 0RF Rx Instructions: Take 4 tabs daily for 5 days levothyroxine [Synthroid] 100 mcg tablet 100 mcg PO DAILY Airborne (ascorbic acid) 250-87.5 mg Tablet,Chewable 2 tab PO DAILY Qvar RediHaler 80 mcg/actuation HFA aerosol breath activated 2 inh Inhalation Q12H Qty: 10.6 11RF albuterol sulfate 90 mcg/actuation HFA aerosol inhaler 2 puff INHALATION PRN PRN (Reason: SOB) Qty: 8.5 6RF Rx Instructions: 2 puffs every 2-4 hours as needed Primary Care Provider: Cinda Yuen Referrals: Cinda Yuen MD [Primary Care Provider] - 3-5 Days if not improving Activity Restrictions/Additional Instructions: This does not appear to be cardiac. Your cardiac work-up is normal. 2 normal t roponins. Which is your heart enzyme. 2 normal EKGs. Your labs and chest x- ray are unremarkable also. This may be GI related. Follow-up with your doctor if not improving. Return if feeling a lot worse. Disposition Disposition: Home, Self Care
[2022-12-23 12:54] LABS: Lipase 87 U/L (73-393)
--- NOTE | 2022-12-23 12:54 | EKG12_ITS ---
Test Reason : CP REPEAT Blood Pressure : / mmHG Vent. Rate : 073 BPM Atrial Rate : 073 BPM P-R Int : 172 ms QRS Dur : 076 ms QT Int : 390 ms P-R-T Axes : 061 019 061 degrees QTc Int : 429 ms Normal sinus rhythm Normal ECG Confirmed by DEBORAH RODRIGUEZ MD ([id number]), online editor CLINT MONTOYA ([id number]) on 12/24/2022 9:55:51 AM Referred By: JUHI Confirmed By:DEBORAH RODRIGUEZ MD
[2022-12-23 12:59] LABS: AST(SGOT) 23 U/L (15-37); Alanine Aminotransfer ALT/SGPT 24 U/L (13-56); Albumin, Serum 3.9 g/dL (3.2-5.0); Alkaline Phosphatase 98 U/L (45-117); Bilirubin, Direct 0.13 mg/dL (0.00-0.30); Globulin 3.5 g/dL (2.2-4.2); Protein, Total 7.4 g/dL (6.4-8.2)
[2022-12-23] MEDS: Mag Hydrox/Al Hydrox/Simeth 30 ML UDC PO (13:28)
[2022-12-23] MEDS: Pantoprazole Sodium 40 MG Tablet PO (13:28)
[2022-12-23 13:51] VITALS: BP 148/80; PULSE 73; RESP 16; O2SAT 96
[2022-12-23 14:01] LABS: Troponin-I HS 52 pg/mL (3.0-54.0)
[2022-12-23 14:49] VITALS: BP 126/78; PULSE 84; RESP 16; O2SAT 99
== END 2022-12-23 14:50 | disposition home or self-care (01) ==
PROVIDERS: Emergency Provider Emergency Medicine; PCP Family Medicine; Visit Provider Emergency Medicine
DX: R07.9 Chest pain, unspecified (principal); J44.9 Chronic obstructive pulmonary disease, unspecified; K21.9 Gastro-esophageal reflux disease without esophagitis; I73.00 Raynaud's syndrome without gangrene; F17.290 Nicotine dependence, other tobacco product, uncomplicated; Z79.890 Hormone replacement therapy; Z79.899 Other long term (current) drug therapy
CPT/HCPCS: 71045; 80048; 80076; 83690; 84484; 85025; 93005; 99285; A4216

== ENCOUNTER → 2023-01-01 | Outpatient (CLI) | payer OTHER, SELFPAY ==
[2023-01-01 10:52] LABS: T4 Total, Thyroxin 14.1 ug/dL (4.8-13.9); Thyroid Stim Hormone (TSH) 1.16 uIU/mL (0.358-3.74)
== END | disposition home or self-care (01) ==
LOC: MTLAB 07:04
PROVIDERS: PCP Family Medicine; Visit Provider Family Medicine
DX: E03.9 Hypothyroidism, unspecified (principal)
CPT/HCPCS: 36415; 84436; 84443

== ENCOUNTER → 2024-02-13 | Outpatient (CLI) | payer OTHER, SELFPAY ==
[2024-02-13 12:07] LABS: T4 Total, Thyroxin 14.4 ug/dL (4.8-13.9); Thyroid Stim Hormone (TSH) 1.54 uIU/mL (0.358-3.74)
== END | disposition home or self-care (01) ==
LOC: MTLAB 07:42
PROVIDERS: PCP Family Medicine; Referring Provider Family Medicine; Visit Provider Family Medicine
DX: E03.9 Hypothyroidism, unspecified (principal)
CPT/HCPCS: 36415; 84436; 84443

== ENCOUNTER → 2024-04-01 | Outpatient (CLI) | payer OTHER, SELFPAY ==
--- NOTE | 2024-04-01 08:19 | BD_ITS ---
STUDY: DUAL ENERGY X-RAY ABSORPTIOMETRY / DXA REASON FOR EXAM: Female, 63 years old. N95.9 TECHNIQUE: Bone Mineral Density (BMD) measurements of lumbar spine and bilateral hips were obtained. COMPARISON: None. FINDINGS: Lumbar Spine (L1-L4): g/cm2 (0.785) / T-score (-2.4) / Z-score (-0.6) Findings are suggestive of osteopenia with a high fracture risk. Left Femur Total: g/cm2 (0.726) / T-score (-1.8) / Z-score (-0.5) Left Femoral Neck: g/cm2 (0.707) / T-score (-1.3) / Z-score (0.2) Right Femur Total: g/cm2 (0.657) / T-score (-2.3) / Z-score (-1.1) Right Femoral Neck: g/cm2 (0.582) / T-score (-2.4) / Z-score (-0.9) BD/Dexa Bone Density Study IMPRESSION: The patient is considered osteopenic as outlined below according to World Mars Organization (WHO) criteria with a high fracture risk. Reference Information: The T-score is the number of standard deviations above or below the standard which is normal for young adults at their peak bone mineral density. The World Health Organization (WHO) interprets the T-scores as follows: Above -1 Normal bone density Between -1 and -2.5 Osteopenia Equal to / or below -2.5 Osteoporosis As a practical clinical guideline, osteopenia may be graded as follows: Mild -1 through -1.5 Moderate -1.6 through -2.0 Severe -2.1 through -2.4 The Z-score is the number of standard deviations above or below age-matched controls. A Z-score of less than -1.5 would be considered abnormal. References: 1. NIH Osteoporosis and Related Bone Diseases www osteo.org 2. International Society for Clinical Densitometry www iscd.org 3. National Osteoporosis Foundation www nof.org Electronically Signed: Chai Miramontes MD at 9:41 EDT ,
== END | disposition home or self-care (01) ==
LOC: OPBD 08:11
PROVIDERS: PCP Family Medicine; Referring Provider Family Medicine; Visit Provider Family Medicine
DX: N95.9 Unspecified menopausal and perimenopausal disorder (principal)
CPT/HCPCS: 77080

== ENCOUNTER → 2024-05-11 | Outpatient (CLI) | payer OTHER, SELFPAY | END | disposition home or self-care (01) | LOC: PSN 06:33 | PROVIDERS: PCP Family Medicine; Referring Provider Internal Medicine Critical Care Medicine; Visit Provider Internal Medicine Critical Care Medicine | DX: J44.9 Chronic obstructive pulmonary disease, unspecified (principal) | CPT/HCPCS: 94060; 94726; 94729 ==

== ENCOUNTER → 2025-02-09 | Outpatient (CLI) | payer OTHER, SELFPAY ==
[2025-02-09 11:52] LABS: T4 Total, Thyroxin 9.7 ug/dL (4.8-13.9)
== END | disposition home or self-care (01) ==
LOC: MTLAB 07:08
PROVIDERS: PCP Family Medicine; Referring Provider Family Medicine; Visit Provider Family Medicine
DX: E03.9 Hypothyroidism, unspecified (principal)
CPT/HCPCS: 36415; 84436; 84443